=== PATIENT | female | born 1970 | race Caucasian/White ===

== ENCOUNTER 2016-09-10 16:51 | Inpatient (IN) | payer OTHER ==
--- NOTE | 2016-09-10 17:44 | CT ---
PROCEDURE: CT HEAD WITHOUT CONTRAST. HISTORY: Left sided weakness COMPARISON: None available. TECHNIQUE: Axial computed tomography images were obtained through the head/brain without intravenous contrast. Radiation dose: Total exam DLP = 815.82 mGy-cm. This CT exam was performed using one or more of the following dose reduction techniques: Automated exposure control, adjustment of the mA and/or kV according to patient size, and/or use of iterative reconstruction technique. FINDINGS: HEMORRHAGE: No intracranial hemorrhage. BRAIN: No mass effect or edema. No atrophy or chronic microvascular ischemic changes. VENTRICLES: Unremarkable. No hydrocephalus. CALVARIUM: Unremarkable. PARANASAL SINUSES: Unremarkable as visualized. No significant inflammatory changes. MASTOID AIR CELLS: Unremarkable as visualized. No inflammatory changes. OTHER FINDINGS: None. IMPRESSION: No acute intracranial abnormalities. No significant findings to account for the clinical presentation. Code stroke protocol: Study completed 17:39 Radiologist notified 17:39 Results conveyed verbally at 17:42 Interpretation finalized and available for review 17:45.
[2016-09-10 18:04] LABS: BASO # 0.1 K/uL (0.0-0.2); BASO % 1.1 % (0.0-2.0); EOS # 0.2 K/uL (0.0-0.7); EOS % 3.6 % (0.0-4.0); LYMPH # 1.9 K/uL (1.0-4.3); LYMPH % 30.1 % (20.0-40.0); MEAN CELL VOLUME 92.2 fL (81.0-99.0); MEAN CORPUSCULAR HEMOGLOBIN 30.3 pg (27.0-31.0); MEAN CORPUSCULAR HGB CONC 32.9 g/dL (33.0-37.0); MEAN PLATELET VOLUME 7.3 fL (7.2-11.7); MONO # 0.5 K/uL (0.0-0.8); MONO % 7.8 % (0.0-10.0); RED CELL DISTRIBUTION WIDTH 13.1 % (11.5-14.5); WHITE BLOOD COUNT 6.2 K/uL (4.8-10.8)
[2016-09-10 18:10] LABS: CHLORIDE 106 mmol/L (98-107); SODIUM 140 mmol/L (132-148)
[2016-09-10 18:11] LABS: POTASSIUM 3.7 mmol/L (3.6-5.2)
[2016-09-10 18:12] LABS: CHOLESTEROL 215 mg/dL (0-199); GFR AFRICAN-AMERICAN > 60
[2016-09-10 18:13] LABS: ALB/GLOB RATIO 1.4 (1.0-2.1); ALKALINE PHOSPHATASE 43 U/L (38-126); AST/SGOT 21 U/L (14-36); BILIRUBIN,TOTAL 0.5 mg/dL (0.2-1.3); BLOOD UREA NITROGEN 14 mg/dL (7-17); CARBON DIOXIDE 22 mmol/L (22-30); GLUCOSE,RANDOM 85 mg/dL (65-105)
[2016-09-10 18:14] LABS: ALT/SGPT 23 U/L (9-52); CALCIUM 8.8 mg/dl (8.6-10.4)
--- NOTE | 2016-09-10 18:27 | C.PDOC ---
History Of Present Illness Pt became emotionally upset this afternoon after she tried to call her daughter but she did not answer. Pt then develop left upper and lower extremity weakness. Time Seen by Provider: 09/10/16 17:09 Chief Complaint (Nursing): Weakness/Neurological Deficit History Per: Patient, EMS, Other (Friend) Onset/Duration Of Symptoms: Other (around 3:30 pm ) Current Symptoms Are (Timing): Still Present Fall Associated With With Symptoms: No Severity: Moderate Additional History Per: Prior Records - Symptoms Of CVA Associated Symptoms: denies: Impaired Speech, Seizure Activity, New Vision Deficit(Left), New Vision Deficit(Right), Decreased Ability To Walk, New Confusion Character Of Deficits: Left: Weakness, Sensory Loss, Arm: Weakness, Sensory Loss , Leg: Weakness, Sensory Loss Recent Head Trauma: No Past Medical History Reviewed: Historical Data, Nursing Documentation, Vital Signs Vital Signs: Last Vital Signs Temp 98.6 F 09/10/16 19:40 Pulse 85 09/10/16 19:40 Resp 13 09/10/16 19:40 BP 113/74 09/10/16 19:40 Pulse Ox 100 09/10/16 19:40 - Medical History PMH: No Chronic Diseases Surgical History: No Surg Hx Family History: States: Unknown Family Hx - Social History Hx Tobacco Use: No Hx Alcohol Use: No Hx Substance Use: No Review Of Systems Except As Marked, All Systems Reviewed And Found Negative. Constitutional: Negative for: Fever Cardiovascular: Negative for: Chest Pain Respiratory: Negative for: Shortness of Breath Gastrointestinal: Negative for: Vomiting, Abdominal Pain Musculoskeletal: Positive for: Shoulder Pain (left). Negative for: Neck Pain Skin: Negative for: Rash Neurological: Positive for: Weakness (left), Numbness (left). Negative for: Seizures, Headache Psych: Positive for: Anxiety Physical Exam - Physical Exam Appears: Non-toxic, No Acute Distress, Other (Pt is crying) Skin: Normal Color, Warm, Dry, No Rash Head: Atraumatic, Normacephalic Eye(s): bilateral: PERRL, EOMI Neck: Normal ROM, No Midline Cervical Tenderness, No Step Off Deformity, Supple Cardiovascular: Rhythm Regular Respiratory: Normal Breath Sounds, No Accessory Muscle Use Back: No CVA Tenderness, No Vertebral Tenderness Extremity: No Normal ROM, Tenderness (in the left upper shoulder area), No Deformity Extremity: Bilateral: Normal Color And Temperature Pulses: Left Radial: Normal, Right Radial: Normal Neurological/Psych: Oriented x3, Normal Motor, Normal Sensation ED Course And Treatment - Laboratory Results Result Diagrams: 09/10/16 17:56 09/10/16 17:56 Lab Interpretation: No Acute Changes ECG: Interpreted By Me, Viewed By Me ECG Rhythm: Sinus Rhythm, Nonspecific Changes Rate From EC O2 Sat by Pulse Oximetry: 99 Pulse Ox Interpretation: Normal - Radiology CXR: Interpreted by Me, Viewed By Me CXR Interpretation: Yes: No Acute Disease - CT Scan/US CT head Other Rad Studies (CT/US): Read By Radiologist, Radiology Report Reviewed CT/US Interpretation: IMPRESSION: No acute intracranial abnormalities. No significant findings to account for the clinical presentation. - Physician Consult Information Physician Contacted: Celso Hutchinson Outcome Of Conversation: He recommended giving pt TPA. He also recommended CT of head&neck after TPA. NIHSS Stroke Scale - Date/Time Evaluation Performed When Was NIHSS Performed: Baseline - How Severe is the Stoke Level of Consciousness: 0=Alert LOC to Questions: 0=Both comments correct LOC to commands: 0=Obeys both correctly Best Gaze: 0=Normal Visual: 0=No visual loss Facial: 0=Normal Motor Arm - Left: 3=No effort against gravity (falls immediately) Motor Arm - Right: 0=No drift Motor Leg - Left: 0=No drift Motor Leg - Right: 3=No effort against gravity (falls immediately) Limb Ataxia: 0=Absent Sensory: 1=Mild to moderate loss Best Language: 0=No aphasia Dysarthia: 0=Normal articulation Extinction & Inattention (Neglect): 0=Normal, no object Score: 7 Severity Of Stroke: 5-15= Moderate Stroke Progress - Interventions Interventions:: Observation - Data Reviewed Data Reviewed: Lab, Diagnostic imaging, EKG, Old records - Patient Status Patient status: Partially improved - Critical Care Citical Care: Excluding Proc Time Critical Care Time: 60 minutes - Continuity of Care Discussed patient case with:: Patient, ED Nurse, On-call PMD-pt unassigned Discussed pt. case with bridal stylist sales consultant/specialty: Neurology, Pulmonary/Crit. Care - Patient Plan Patient Plan: Admission, ICU rTPA Inclusion/Exclusion - Refusal of Treatment Patient Refused Treatment: No - Inclusion Criteria for Altepase Patient is 18 years or Older: Yes The Clinical Diagnosis of Ischemic Stroke That is Causing a Potentially Disabling Neurological Deficit: Yes Time of Onset is Well Established to be Less Than 270 Minute Before Treatment Would Begin: Yes Risk/Benefit Discussed With Patient/Family Member Present: Yes - Exclusion Criteria for Altepase Uncontrolled Hypertension at Time of Treatment (Systolic BP above 185 or Diastolic BP above 110 mmHg): No Active Internal Bleeding: No Known Bleeding Diathesis Including but Not Limited to: Platelets Below 100,000/ mm,PTT Above 40 sec After Heparin Use, Current Use of Oral Anitcoagulant With INR Greater Than 1.7 or PT Greater Than 15 secs: No Evidence of an Intracranial Hemorrhage: No Evidence of Major Acute Infarct With Signs Greater Than 1/3 MCA Territory: No Suspicion of Subarachnoid Hemorrhage on Pretreatment Evaluation Even if CT Head Negative For Hemorrhage: No - Warning to TPA With Conditions Following Conditions Weighed Against Anticipated Benefit: No Disposition Discussed With DrRandi: Eduard Torres Comment: He accepted pt on hospitalist service. Doctor Will See Patient In The: Hospital Counseled Patient/Family Regarding: Studies Performed, Diagnosis - Disposition Disposition: HOSPITALIZED Disposition Time: 19:57 Condition: FAIR - Clinical Impression Clinical Impression: Weakness of left side of body
[2016-09-10 18:53] LABS: INR 1.1
[2016-09-10] MEDS ORDERED: Iodixanol 320 MG/ML 100 ML BOTTLE IV ONE (20:13)
--- NOTE | 2016-09-10 20:31 | CP.PCM.HP ---
<Lionel Flores - Last Filed: 09/10/16 22:46> History of Present Illness - History of Present Illness History of Present Illness: CC: Weakness/Neurological Deficit since this morning. HPI: 45yo female with no significant PMHx - presents c/o Left sided weakness/ paralysis since this morning. 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 While in class, she made a phone- call to her daughter in [facility], could not reach her. While speaking with her teacher shortly after, she became emotional, fainted, and was unconscious for approximately 4 minutes (per teacher). She woke up with Left sided arm/leg weakness, vision changes (blurry), and tenderness to the occipital region. Denies incontinence of urine/feces at time of fainting. Denies f/c, headache, confusion, seizure, change in speech, chest pain, palpitations, SOB, abdominal pain, n/v, d/c, LE edema, or recent travel. This is the first time this constellation of symptoms has occurred, however patient reports a high level of stress for the last few weeks surround family issues. 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 Two friends at bedside, Be and Violet. In the ED, patient presented with inability to move her left arm/leg. CT head- Negative. ER physician discussed case with Neurologist and TPA was administered at 19:07. By 19:58 patient was able to minimally move L fingers/toes. By 20:14 patient was able to minimally move the L arm. During additional exam at 21:00, patient could minimally squeeze utilizing the L hand. PMHx: none, however patient very stressed for last 2-3 weeks. PSHx: denies Meds: none Allergies: NKDA FamHx: Father - of stroke at 60yo. Mother - DM. 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 PMD: none Present on Admission - Present on Admission Any Indicators Present on Admission: No Review of Systems - Review of Systems Review of Systems: - Constitutional Constitutional: absent: Anorexia, Chills, Fever, Weight Loss - EENT Eyes: +Blurred Vision absent: Loss of Peripheral Vision Ears: absent: Decreased Hearing, Ear Pain Nose/Mouth/Throat: absent: Epistaxis, Nasal Congestion, Bleeding Gums - Cardiovascular Cardiovascular: Irregular Heart Rhythm. absent: Chest Pain, Dyspnea, Edema - Respiratory Respiratory: absent: Cough, Dyspnea, Hemoptysis - Gastrointestinal Gastrointestinal: absent: Abdominal Pain, Coffee Ground Emesis, Hematochezia, Melena, Vomiting - Genitourinary Genitourinary: absent: Difficulty Urinating, Hematuria - Reproductive: Female Reproductive:Female: absent: Amenorrhea Additional comments: LMP 08/15/16 - Musculoskeletal Musculoskeletal: Muscle Weakness. absent: Back Pain, Neck Pain - Integumentary Integumentary: absent: Rash, Sores - Neurological Neurological: As Per HPI, Numbness, Syncope, Weakness. absent: Abnormal Speech , Dizziness, Headaches, Loss of Vision - Psychiatric Psychiatric: Anxiety, Depression - Endocrine Endocrine: absent: Excessive Sweating, Palpitations Past Patient History - Past Social History Smoking Status: Never Smoked - PSYCHIATRIC Hx Substance Use: No - SURGICAL HISTORY Hx Surgeries: No Meds Allergies/Adverse Reactions: Allergies Allergy/AdvReac Type Severity Reaction Status Date / Time No Known Allergies Allergy Unverified 09/10/16 16:59 Physical Exam - Extremities Exam Additional comments: Left: Weakness, Sensory Loss, Arm: Weakness, Sensory Loss, Leg: Weakness, Sensory Loss - Additional Findings Additional findings: - Constitutional Appears: No Acute Distress Additional comments: -Crying in ER, sad that she has not been able to contact daughter - Head Exam Head Exam: ATRAUMATIC, NORMAL INSPECTION, NORMOCEPHALIC - Eye Exam Eye Exam: EOMI, Normal appearance, PERRL. absent: Conjunctival injection, Periorbital swelling Pupil Exam: NORMAL ACCOMODATION - ENT Exam ENT Exam: Mucous Membranes Moist, Normal Exam - Neck Exam Neck exam: Positive for: Full Rom, Normal Inspection. Negative for: Lymphadenopathy - Respiratory Exam Respiratory Exam: Clear to Auscultation Bilateral, NORMAL BREATHING PATTERN. absent: Rhonchi, Wheezes - Cardiovascular Exam Cardiovascular Exam: REGULAR RHYTHM. absent: JVD - GI/Abdominal Exam GI & Abdominal Exam: Normal Bowel Sounds, Soft. absent: Organomegaly, Tenderness - Rectal Exam Rectal Exam: NORMAL INSPECTION. absent: Black Stool - Extremities Exam Extremities exam: Positive for: normal inspection. Negative for: calf tenderness, joint swelling, pedal edema - Back Exam Back exam: NORMAL INSPECTION - Neurological Exam Neurological exam: Alert, CN II-XII Intact, Oriented x3 Additional comments: -left upper and lower extremity weakness. Minimally squeezes with L hand. Minimally moves toes. NIHSS Stroke Scale - Date/Time Evaluation Performed When Was NIHSS Performed: Baseline - How Severe is the Stoke Level of Consciousness: 0=Alert LOC to Questions: 0=Both comments correct LOC to commands: 0=Obeys both correctly Best Gaze: 0=Normal Visual: 0=No visual loss Facial: 0=Normal Motor Arm - Left: 3=No effort against gravity (falls immediately) Motor Arm - Right: 0=No drift Motor Leg - Left: 0=No drift Motor Leg - Right: 3=No effort against gravity (falls immediately) Limb Ataxia: 0=Absent Sensory: 1=Mild to moderate loss Best Language: 0=No aphasia Dysarthia: 0=Normal articulation Extinction & Inattention (Neglect): 0=Normal, no object Score: 7 Severity Of Stroke: 5-15= Moderate Stroke - Psychiatric Exam Psychiatric exam: Anxious - Skin Skin Exam: Normal Color Results - Vital Signs Recent Vital Signs: Last Vital Signs Temp 98.3 F 09/10/16 20:15 Pulse 79 09/10/16 20:15 Resp 11 L 09/10/16 20:15 BP 115/79 09/10/16 20:15 Pulse Ox 100 09/10/16 20:15 - Labs Result Diagrams: 09/10/16 17:56 09/10/16 17:56 Labs: Laboratory Results - last 24 hr 09/10/16 09/10/16 09/10/16 17:56 17:56 17:56 WBC 6.2 RBC 4.55 Hgb 13.8 Hct 42.0 MCV 92.2 MCH 30.3 MCHC 32.9 L RDW 13.1 Plt Count 266 MPV 7.3 Neut % (Auto) 57.4 Lymph % (Auto) 30.1 [place] % (Auto) 7.8 Eos % (Auto) 3.6 Baso % (Auto) 1.1 Neut # 3.6 Lymph # 1.9 [place] # 0.5 Eos # 0.2 Baso # 0.1 PT 12.3 H INR 1.1 APTT 27 Sodium 140 Potassium 3.7 Chloride 106 Carbon Dioxide 22 Anion Gap 15 BUN 14 Creatinine 0.7 Est GFR ( Amer) > 60 Est GFR (Non-Af Amer) > 60 POC Glucose (mg/dL) Random Glucose 85 Hemoglobin A1c Calcium 8.8 Total Bilirubin 0.5 AST 21 ALT 23 Alkaline Phosphatase 43 Troponin I < 0.0120 Total Protein 7.0 Albumin 4.0 Globulin 3.0 Albumin/Globulin Ratio 1.4 Triglycerides 93 Cholesterol 215 H LDL Cholesterol Direct 130 H HDL Cholesterol 55 Blood Type Antibody Screen 09/10/16 09/10/16 09/10/16 17:56 17:56 17:59 WBC RBC Hgb Hct MCV MCH MCHC RDW Plt Count MPV Neut % (Auto) Lymph % (Auto) [place] % (Auto) Eos % (Auto) Baso % (Auto) Neut # Lymph # [place] # Eos # Baso # PT INR APTT Sodium Potassium Chloride Carbon Dioxide Anion Gap BUN Creatinine Est GFR ( Amer) Est GFR (Non-Af Amer) POC Glucose (mg/dL) 86 Random Glucose Hemoglobin A1c 5.4 Calcium Total Bilirubin AST ALT Alkaline Phosphatase Troponin I Total Protein Albumin Globulin Albumin/Globulin Ratio Triglycerides Cholesterol LDL Cholesterol Direct HDL Cholesterol Blood Type A NEGATIVE Antibody Screen Negative Assessment & Plan - Assessment and Plan (Free Text) Assessment: Cerebrovascular Accident (CVA) -Acute onset Left Upper and Lower Extremity weakness received tPA as recommended by Neurology -CT head w/contrast - Negative -f/u rpt CT head/neck with contrast. -CXR negative -EKG NSR -Consulted Neuro, Dr. Hutchinson, f/u recs -pt transferred to ICU -NIHSS Stroke Scale - 7/15 (moderate stroke) Anxiety -patient with a high level of stress for 2-3 weeks surrounding family issues ( 10yr old daughter in [facility]). 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 -When performing drop-arm test, patient avoided contact with face. Prophylaxis SCDs PT/OT eval/tx Swallow eval/tx Protonix 40mg PO qd - Date & Time Date: 09/10/16 Time: 20:30 <Eduard Torres - Last Filed: 09/11/16 06:35> Results - Vital Signs Recent Vital Signs: Last Vital Signs Temp 98.7 F 09/11/16 00:00 Pulse 18 L 09/11/16 05:00 Resp 70 H 09/11/16 05:00 BP 97/60 L 09/11/16 05:00 Pulse Ox 97 09/11/16 04:00 - Labs Result Diagrams: 09/10/16 17:56 09/10/16 17:56 Labs: Laboratory Results - last 24 hr 09/10/16 09/10/16 09/10/16 20:29 20:29 23:57 POC Glucose (mg/dL) 88 Urine Color Yellow Urine Clarity Hazy Urine pH 5.0 Ur Specific [place] 1.014 Urine Protein Negative Urine Glucose (UA) Normal Urine Ketones Trace Urine Blood 2+ H Urine Nitrate Negative Urine Bilirubin Negative Urine Urobilinogen Normal Ur Leukocyte Esterase 2+ H Urine WBC (Auto) 21 H Urine RBC (Auto) 7 H Ur Squamous Epith Cells 8 H Ur Transition Epith Cell < 1 Urine Bacteria Occ H Urine HCG, Qual Negative Stool Occult Blood Negative Assessment & Plan - Date & Time Date: 09/11/16 (I have seen and examined the patient. I agree with the findings and plan of care as documented by Dr. Flores except for portion regarding Conversion/Somatoform disorder - not diagnosed, will speak to patient' s family regarding any psych related issues. Patient with CVA. tPA given in ED. Neuro consulted. F/U repeat CT of head and neck with contrast. PT/OT. 2D Echo. Fall precautions. Also with history of of anxiety. Ativan. Admit to ICU. Monitor for acute changes.) Time: 06:32 Attending/Attestation - Attestation I have personally seen and examined this patient.: Yes I have fully participated in the care of the patient.: Yes I have reviewed all pertinent clinical information: Yes
--- NOTE | 2016-09-10 20:47 | CP.PCM.CON ---
History of Present Illness - History of Present Illness History of Present Illness: 45 y/o female with no significant PMH,not on medications brought to Er with left sided weakness after fainting.Patient became emotionally upset this afternoon after she tried to call her 10 y/o daughter in [facility] but she did not answer. Patient was at an Amharic class talking to her teacher when she "fainted" for unknown duration of time. When she woke up she could not move the left side of her body.No incontinence of urine or feces at time of fainting. 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 absent: Chest Pain, Dyspnea, Edema - Respiratory Respiratory: Cough, Dyspnea, Hemoptysis - Gastrointestinal Gastrointestinal: absent: Abdominal Pain, Coffee Ground Emesis, Hematochezia, Melena, Vomiting - Genitourinary Genitourinary: absent: Difficulty Urinating, Hematuria - Reproductive: Female Reproductive:Female: absent: Amenorrhea Additional comments: LMP 08/15/16 - Musculoskeletal Musculoskeletal: Muscle Weakness. absent: Back Pain, Neck Pain - Integumentary Integumentary: absent: Rash, Sores - Neurological Neurological: As Per HPI, Numbness, Syncope, Weakness. absent: Abnormal Speech , Dizziness, Headaches, Loss of Vision - Psychiatric Psychiatric: Anxiety, Depression - Endocrine Endocrine: absent: Excessive Sweating, Palpitations Past Patient History - Past Medical History & Family History Past Medical History?: No - Past Social History Smoking Status: Never Smoked Alcohol: None Drugs: Denies - PSYCHIATRIC Hx Substance Use: No - SURGICAL HISTORY Hx Surgeries: No Meds Allergies/Adverse Reactions: Allergies Allergy/AdvReac Type Severity Reaction Status Date / Time No Known Allergies Allergy Unverified 09/10/16 16:59 Physical Exam - Constitutional Appears: No Acute Distress Additional comments: Crying in ER,sad that she has not been able to contact daughter - Head Exam Head Exam: ATRAUMATIC, NORMAL INSPECTION, NORMOCEPHALIC - Eye Exam Eye Exam: EOMI, Normal appearance, PERRL. absent: Conjunctival injection, Periorbital swelling Pupil Exam: NORMAL ACCOMODATION - ENT Exam ENT Exam: Mucous Membranes Moist, Normal Exam - Neck Exam Neck exam: Positive for: Full Rom, Normal Inspection. Negative for: Lymphadenopathy - Respiratory Exam Respiratory Exam: Clear to Auscultation Bilateral, NORMAL BREATHING PATTERN. absent: Rhonchi, Wheezes - Cardiovascular Exam Cardiovascular Exam: REGULAR RHYTHM. absent: JVD - GI/Abdominal Exam GI & Abdominal Exam: Normal Bowel Sounds, Soft. absent: Organomegaly, Tenderness - Rectal Exam Rectal Exam: NORMAL INSPECTION. absent: Black Stool - Extremities Exam Extremities exam: Positive for: normal inspection. Negative for: calf tenderness, joint swelling, pedal edema - Back Exam Back exam: NORMAL INSPECTION - Neurological Exam Neurological exam: Alert, CN II-XII Intact, Oriented x3 Additional comments: left upper and lower extremity weakness .moves hand and toes minimally - Psychiatric Exam Psychiatric exam: Anxious - Skin Skin Exam: Normal Color Results - Vital Signs Recent Vital Signs: Last Vital Signs Temp 98.5 F 09/10/16 20:35 Pulse 82 09/10/16 20:35 Resp 19 09/10/16 20:35 BP 119/64 09/10/16 20:35 Pulse Ox 100 09/10/16 20:35 - Labs Result Diagrams: 09/10/16 17:56 09/10/16 17:56 - EKG Data EKG Interpreted by: Myself - Imaging and Cardiology CT scan - head Status: Image reviewed by me, Report reviewed by me Chest x-ray Status: Image reviewed by me (no infiltrates) Assessment & Plan - Assessment and Plan (Free Text) Assessment: 1.CVA-Acute onset Left Upper and Lower Extremity weakness received tPA as recommended by Neurology f/u with rpt CT scan 2.Anxiety
[2016-09-10 21:05] LABS: RBC URINE 7 /hpf (0-3); TRANSITIONAL EPITHIAL < 1 /hpf (0-3); URINE BACTERIA OCC (<OCC); URINE BILIRUBIN NEGATIVE (NEGATIVE); URINE BLOOD 2+ (NEGATIVE); URINE COLOR Yellow (YELLOW); URINE GLUCOSE (UA) NORMAL (Normal); URINE KETONE TRACE mg/dL (NEGATIVE); URINE LEUKOCYTE ESTERASE 2+ Leu/uL (Negative); URINE PROTEIN NEGATIVE (NEGATIVE); URINE UROBILINOGEN NORMAL mg/dL (0.2-1.0); WBC URINE 21 /hpf (0-5)
[2016-09-11] MEDS ORDERED: Dextrose 5%/0.45% NS 1,000 ML IV SCH (01:15)
[2016-09-11] MEDS ORDERED: (Novolin R) Insulin Human Regular 100 units/ml vial SC SCH (06:45)
[2016-09-11 06:46] LABS: BASO # 0.1 K/uL (0.0-0.2); BASO % 0.9 % (0.0-2.0); EOS # 0.3 K/uL (0.0-0.7); EOS % 4.9 % (0.0-4.0); HEMATOCRIT 41.7 % (34.0-47.0); LYMPH # 2.5 K/uL (1.0-4.3); LYMPH % 43.9 % (20.0-40.0); MEAN CELL VOLUME 92.8 fL (81.0-99.0); MEAN CORPUSCULAR HEMOGLOBIN 30.9 pg (27.0-31.0); MEAN CORPUSCULAR HGB CONC 33.3 g/dL (33.0-37.0); MEAN PLATELET VOLUME 7.4 fL (7.2-11.7); MONO # 0.5 K/uL (0.0-0.8); MONO % 8.7 % (0.0-10.0); RED CELL DISTRIBUTION WIDTH 12.9 % (11.5-14.5); WHITE BLOOD COUNT 5.7 K/uL (4.8-10.8)
[2016-09-11 07:05] LABS: CHLORIDE 107 mmol/L (98-107)
[2016-09-11 07:06] LABS: POTASSIUM 3.5 mmol/L (3.6-5.2); SODIUM 140 mmol/L (132-148)
[2016-09-11 07:08] LABS: ALB/GLOB RATIO 1.3 (1.0-2.1); ALKALINE PHOSPHATASE 38 U/L (38-126); AST/SGOT 24 U/L (14-36); BILIRUBIN,TOTAL 0.8 mg/dL (0.2-1.3); BLOOD UREA NITROGEN 10 mg/dL (7-17); CARBON DIOXIDE 19 mmol/L (22-30); GFR AFRICAN-AMERICAN > 60; GLUCOSE,RANDOM 85 mg/dL (65-105); TOTAL PROTEIN 6.4 g/dL (6.3-8.3)
[2016-09-11 07:09] LABS: ALT/SGPT 13 U/L (9-52); CALCIUM 8.6 mg/dl (8.6-10.4); MAGNESIUM 2.1 mg/dL (1.6-2.3); PHOSPHOROUS 3.8 mg/dL (2.5-4.5)
--- NOTE | 2016-09-11 07:48 | CP.CCUPN ---
<Amy Dunne - Last Filed: 09/11/16 10:43> CCU Subjective - Physician Review Subjective (Free Text): 45F with no PMHx presents to the ED with left sided weakness. Patient reports she is under a lot of stress, anxiety and depression due to her only daughter being in other country with family. She is in the process of getting a green card for her but it has been taking longer than anticipated. She has not been able to get in contact with the family for the past 2 days and this has brought her a lot of concern and worry. Yesterday she was in her ESL class when she tried to call her daughter but was unable to get in contact with her for a 2nd day. Then she started to feel lightheaded and fainted. She lost sensation and motor function throughout the left side of her body. After receiving TPA she started to have sensation back. Today she states she has full sensation but she cannot move her left extremities. Patient was seen and examined at bedside. Patient reports she feels pain all over. She can wiggle left fingers, hand, and left toes. She cannot raise her left arm. Patient is laying down flat and when passively moving the left arm in front of her face, the arm falls with gravity but avoids her face. Initial Head CT was negative, second Head CT was also negative. Pending follow up of Head CTA and Brain MRI. Psych consulted for possible conversion disorder. CCU Objective - Vital Signs / Intake & Output Vital Signs (Last 4 hours): Vital Signs Pulse Resp BP Pulse Ox 09/11/16 06:00 68 18 110/56 L 97 09/11/16 05:00 18 L 70 H 97/60 L 09/11/16 04:00 74 16 87/57 L 97 Intake and Output (Last 8hrs): Intake & Output 09/10/16 09/11/16 09/11/16 22:59 06:59 14:59 Intake Total 300 Output Total 700 Balance -400 Intake: Intake, IV Amount 300 Right Forearm 300 Output: Urine 700 Urine, Voided 700 - Physical Exam Head: Positive for: Atraumatic, Normocephalic Pupils: Positive for: PERRL Extroacular Muscles: Positive for: EOMI Conjunctiva: Positive for: Normal Mouth: Positive for: Moist Mucous Membranes Respiratory/Chest: Positive for: Clear to Auscultation. Negative for: Respiratory Distress, Accessory Muscle Use Cardiovascular: Positive for: Regular Rate and Rhythm Abdomen: Positive for: Normal Bowel Sounds. Negative for: Tenderness, Distention Upper Extremity: Positive for: Normal Inspection, NORMAL PULSES, Other (Left arm strength +2/5 ) Lower Extremity: Positive for: Normal Inspection, NORMAL PULSES, Other (Left leg strength +2/5 ). Negative for: CALF TENDERNESS Neurological: Positive for: GCS=15, CN II-XII Intact, Other Skin: Positive for: Warm, Dry, Normal Color Psychiatric: Positive for: Alert, Oriented x 3 - Medications Active Medications: Active Medications Generic Name Dose Route Start Last Admin Trade Name Freq PRN Reason Stop Dose Admin Dextrose/Sodium Chloride 1,000 mls @ 60 mls/hr 09/11/16 01:15 Dextrose 5%/0.45% Ns 1000 Ml IV .[id number] [facility] Insulin Human Regular 0 unit 09/11/16 06:45 Novolin R SC Q6H [facility] Protocol Pantoprazole Sodium 40 mg 09/11/16 10:00 Protonix Ec Tab PO DAILY [facility] Potassium Chloride 40 meq 09/11/16 09:00 K-Dur 20 Meq Er Tab PO 09/11/16 09:01 ONCE ONE - Patient Studies Lab Studies: Lab Studies 09/11/16 09/11/16 09/10/16 Range/Units 06:44 06:44 23:57 WBC 5.7 (4.8-10.8) K/uL RBC 4.49 (3.80-5.20) Mil/uL Hgb 13.9 (11.0-16.0) g/dL Hct 41.7 (34.0-47.0) % MCV 92.8 (81.0-99.0) fL MCH 30.9 (27.0-31.0) pg MCHC 33.3 (33.0-37.0) g/dL RDW 12.9 (11.5-14.5) % Plt Count 249 (130-400) K/uL MPV 7.4 (7.2-11.7) fL Neut % (Auto) 41.6 L (50.0-75.0) % Lymph % (Auto) 43.9 H (20.0-40.0) % Cochran % (Auto) 8.7 (0.0-10.0) % Eos % (Auto) 4.9 H (0.0-4.0) % Baso % (Auto) 0.9 (0.0-2.0) % Neut # 2.4 (1.8-7.0) K/uL Lymph # 2.5 (1.0-4.3) K/uL Cochran # 0.5 (0.0-0.8) K/uL Eos # 0.3 (0.0-0.7) K/uL Baso # 0.1 (0.0-0.2) K/uL Sodium 140 (132-148) mmol/L Potassium 3.5 L (3.6-5.2) mmol/L Chloride 107 (98-107) mmol/L Carbon Dioxide 19 L (22-30) mmol/L Anion Gap 18 (10-20) BUN 10 (7-17) mg/dL Creatinine 0.5 L (0.7-1.2) MG/DL Est GFR ( Amer) > 60 Est GFR (Non-Af Amer) > 60 POC Glucose (mg/dL) 88 (65-110) mg/dL Random Glucose 85 (65-105) mg/dL Calcium 8.6 (8.6-10.4) mg/dl Phosphorus 3.8 (2.5-4.5) mg/dL Magnesium 2.1 (1.6-2.3) mg/dL Total Bilirubin 0.8 (0.2-1.3) mg/dL AST 24 (14-36) U/L ALT 13 (9-52) U/L Alkaline Phosphatase 38 (38-126) U/L Total Protein 6.4 (6.3-8.3) g/dL Albumin 3.5 (3.5-5.0) g/dL Globulin 2.8 (2.2-3.9) gm/dL Albumin/Globulin Ratio 1.3 (1.0-2.1) Urine Color (YELLOW) Urine Clarity (Clear) Urine pH (5.0-8.0) Ur Specific [place] (1.003-1.030) Urine Protein (NEGATIVE) mg/dL Urine Glucose (UA) (Normal) mg/dL Urine Ketones (NEGATIVE) mg/dL Urine Blood (NEGATIVE) Urine Nitrate (NEGATIVE) Urine Bilirubin (NEGATIVE) Urine Urobilinogen (0.2-1.0) mg/dL Ur Leukocyte Esterase (Negative) Rebecca/uL Urine WBC (Auto) (0-5) /hpf Urine RBC (Auto) (0-3) /hpf Ur Squamous Epith Cells (0-5) /hpf Ur Transition Epith Cell (0-3) /hpf Urine Bacteria (<OCC) Urine HCG, Qual (NEGATIVE) Stool Occult Blood (NEGATIVE) 09/10/16 09/10/16 Range/Units 20:29 20:29 WBC (4.8-10.8) K/uL RBC (3.80-5.20) Mil/uL Hgb (11.0-16.0) g/dL Hct (34.0-47.0) % MCV (81.0-99.0) fL MCH (27.0-31.0) pg MCHC (33.0-37.0) g/dL RDW (11.5-14.5) % Plt Count (130-400) K/uL MPV (7.2-11.7) fL Neut % (Auto) (50.0-75.0) % Lymph % (Auto) (20.0-40.0) % Cochran % (Auto) (0.0-10.0) % Eos % (Auto) (0.0-4.0) % Baso % (Auto) (0.0-2.0) % Neut # (1.8-7.0) K/uL Lymph # (1.0-4.3) K/uL Cochran # (0.0-0.8) K/uL Eos # (0.0-0.7) K/uL Baso # (0.0-0.2) K/uL Sodium (132-148) mmol/L Potassium (3.6-5.2) mmol/L Chloride (98-107) mmol/L Carbon Dioxide (22-30) mmol/L Anion Gap (10-20) BUN (7-17) mg/dL Creatinine (0.7-1.2) MG/DL Est GFR ( Amer) Est GFR (Non-Af Amer) POC Glucose (mg/dL) (65-110) mg/dL Random Glucose (65-105) mg/dL Calcium (8.6-10.4) mg/dl Phosphorus (2.5-4.5) mg/dL Magnesium (1.6-2.3) mg/dL Total Bilirubin (0.2-1.3) mg/dL AST (14-36) U/L ALT (9-52) U/L Alkaline Phosphatase (38-126) U/L Total Protein (6.3-8.3) g/dL Albumin (3.5-5.0) g/dL Globulin (2.2-3.9) gm/dL Albumin/Globulin Ratio (1.0-2.1) Urine Color Yellow (YELLOW) Urine Clarity Hazy (Clear) Urine pH 5.0 (5.0-8.0) Ur Specific [place] 1.014 (1.003-1.030) Urine Protein Negative (NEGATIVE) mg/dL Urine Glucose (UA) Normal (Normal) mg/dL Urine Ketones Trace (NEGATIVE) mg/dL Urine Blood 2+ H (NEGATIVE) Urine Nitrate Negative (NEGATIVE) Urine Bilirubin Negative (NEGATIVE) Urine Urobilinogen Normal (0.2-1.0) mg/dL Ur Leukocyte Esterase 2+ H (Negative) Rebecca/uL Urine WBC (Auto) 21 H (0-5) /hpf Urine RBC (Auto) 7 H (0-3) /hpf Ur Squamous Epith Cells 8 H (0-5) /hpf Ur Transition Epith Cell < 1 (0-3) /hpf Urine Bacteria Occ H (<OCC) Urine HCG, Qual Negative (NEGATIVE) Stool Occult Blood Negative (NEGATIVE) Laboratory Results - last 24 hr 09/10/16 09/10/16 09/10/16 20:29 20:29 23:57 WBC RBC Hgb Hct MCV MCH MCHC RDW Plt Count MPV Neut % (Auto) Lymph % (Auto) Cochran % (Auto) Eos % (Auto) Baso % (Auto) Neut # Lymph # Cochran # Eos # Baso # Sodium Potassium Chloride Carbon Dioxide Anion Gap BUN Creatinine Est GFR ( Amer) Est GFR (Non-Af Amer) POC Glucose (mg/dL) 88 Random Glucose Calcium Phosphorus Magnesium Total Bilirubin AST ALT Alkaline Phosphatase Total Protein Albumin Globulin Albumin/Globulin Ratio Urine Color Yellow Urine Clarity Hazy Urine pH 5.0 Ur Specific [place] 1.014 Urine Protein Negative Urine Glucose (UA) Normal Urine Ketones Trace Urine Blood 2+ H Urine Nitrate Negative Urine Bilirubin Negative Urine Urobilinogen Normal Ur Leukocyte Esterase 2+ H Urine WBC (Auto) 21 H Urine RBC (Auto) 7 H Ur Squamous Epith Cells 8 H Ur Transition Epith Cell < 1 Urine Bacteria Occ H Urine HCG, Qual Negative Stool Occult Blood Negative 09/11/16 09/11/16 06:44 06:44 WBC 5.7 RBC 4.49 Hgb 13.9 Hct 41.7 MCV 92.8 MCH 30.9 MCHC 33.3 RDW 12.9 Plt Count 249 MPV 7.4 Neut % (Auto) 41.6 L Lymph % (Auto) 43.9 H Cochran % (Auto) 8.7 Eos % (Auto) 4.9 H Baso % (Auto) 0.9 Neut # 2.4 Lymph # 2.5 Cochran # 0.5 Eos # 0.3 Baso # 0.1 Sodium 140 Potassium 3.5 L Chloride 107 Carbon Dioxide 19 L Anion Gap 18 BUN 10 Creatinine 0.5 L Est GFR ( Amer) > 60 Est GFR (Non-Af Amer) > 60 POC Glucose (mg/dL) Random Glucose 85 Calcium 8.6 Phosphorus 3.8 Magnesium 2.1 Total Bilirubin 0.8 AST 24 ALT 13 Alkaline Phosphatase 38 Total Protein 6.4 Albumin 3.5 Globulin 2.8 Albumin/Globulin Ratio 1.3 Urine Color Urine Clarity Urine pH Ur Specific [place] Urine Protein Urine Glucose (UA) Urine Ketones Urine Blood Urine Nitrate Urine Bilirubin Urine Urobilinogen Ur Leukocyte Esterase Urine WBC (Auto) Urine RBC (Auto) Ur Squamous Epith Cells Ur Transition Epith Cell Urine Bacteria Urine HCG, Qual Stool Occult Blood Fingerstick Blood Sugar Results: 88 Critical Care Progress Note - Nutrition Nutrition: Nutrition Category Date Time Status NPO Diet [DIET] Diets 09/11/16 Breakfast Active Assessment/Plan - Assessment and Plan (Free Text) Assessment: 45F with no PMHx presents with acute onset left sided weakness. Head CT neg x2. TPA was administered. Plan: CVA * Acute onset Left upper and lower extremity weakness * NIHSS Stroke Scale - 7/15 (moderate stroke) * Received tPA as recommended by Neurology * Initial CT head w/contrast - Negative, repeat head CT negative * Consulted Neuro, Dr. Hutchinson- patient was given TPA in the ED, Head CTA ordered , Brain MRI order- pending readings Possible Conversion/ Somatoform Disorder * Patient is laying down flat and when passively moving the left arm infront of her face, the arm falls with gravity but avoids her face. * Patient reports a significant amount of stress over the past few weeks. Patient's 10 year old daughter resides in a different country. * Psych Consulted- Dr. Hinton- help appreciated Hypokalemia * KCL repleted UTI * Initial UA - + LE, follow up repeat UA * Denied any urinary symptoms * Follow up urine drug screen Prophylactic Measures * GI PPX: Protonix 40mg PO daily * DVT PPX: SCDs * Regular Diet * PT/ OT DW Vibha Martinez DO, PGY-1 <Eboni Umanzor - Last Filed: 09/11/16 13:58> CCU Objective - Vital Signs / Intake & Output Vital Signs (Last 4 hours): Vital Signs Pulse Resp BP Pulse Ox 09/11/16 12:25 84 16 97/61 L 100 09/11/16 11:00 87 18 99/58 L 98 09/11/16 10:00 84 16 107/66 99 Intake and Output (Last 8hrs): Intake & Output 09/10/16 09/11/16 09/11/16 22:59 06:59 14:59 Intake Total 300 600 Output Total 700 400 Balance -400 200 Intake: Intake, IV Amount 300 400 Right Forearm 300 400 Oral 200 Output: Urine 700 400 Urine, Voided 700 400 - Medications Active Medications: Active Medications Generic Name Dose Route Start Last Admin Trade Name Freq PRN Reason Stop Dose Admin Pantoprazole Sodium 40 mg 09/11/16 10:00 09/11/16 09:55 Protonix Ec Tab PO 40 mg DAILY [facility] Administration Sertraline HCl 50 mg 09/11/16 13:00 Zoloft PO DAILY [facility] Trazodone HCl 50 mg 09/11/16 22:00 Desyrel PO HS FESTUS - Patient Studies Lab Studies: Lab Studies 09/11/16 09/11/16 09/10/16 Range/Units 06:44 06:44 23:57 WBC 5.7 (4.8-10.8) K/uL RBC 4.49 (3.80-5.20) Mil/uL Hgb 13.9 (11.0-16.0) g/dL Hct 41.7 (34.0-47.0) % MCV 92.8 (81.0-99.0) fL MCH 30.9 (27.0-31.0) pg MCHC 33.3 (33.0-37.0) g/dL RDW 12.9 (11.5-14.5) % Plt Count 249 (130-400) K/uL MPV 7.4 (7.2-11.7) fL Neut % (Auto) 41.6 L (50.0-75.0) % Lymph % (Auto) 43.9 H (20.0-40.0) % Cochran % (Auto) 8.7 (0.0-10.0) % Eos % (Auto) 4.9 H (0.0-4.0) % Baso % (Auto) 0.9 (0.0-2.0) % Neut # 2.4 (1.8-7.0) K/uL Lymph # 2.5 (1.0-4.3) K/uL Cochran # 0.5 (0.0-0.8) K/uL Eos # 0.3 (0.0-0.7) K/uL Baso # 0.1 (0.0-0.2) K/uL Sodium 140 (132-148) mmol/L Potassium 3.5 L (3.6-5.2) mmol/L Chloride 107 (98-107) mmol/L Carbon Dioxide 19 L (22-30) mmol/L Anion Gap 18 (10-20) BUN 10 (7-17) mg/dL Creatinine 0.5 L (0.7-1.2) MG/DL Est GFR ( Amer) > 60 Est GFR (Non-Af Amer) > 60 POC Glucose (mg/dL) 88 (65-110) mg/dL Random Glucose 85 (65-105) mg/dL Calcium 8.6 (8.6-10.4) mg/dl Phosphorus 3.8 (2.5-4.5) mg/dL Magnesium 2.1 (1.6-2.3) mg/dL Total Bilirubin 0.8 (0.2-1.3) mg/dL AST 24 (14-36) U/L ALT 13 (9-52) U/L Alkaline Phosphatase 38 (38-126) U/L Total Protein 6.4 (6.3-8.3) g/dL Albumin 3.5 (3.5-5.0) g/dL Globulin 2.8 (2.2-3.9) gm/dL Albumin/Globulin Ratio 1.3 (1.0-2.1) Urine Color (YELLOW) Urine Clarity (Clear) Urine pH (5.0-8.0) Ur Specific [place] (1.003-1.030) Urine Protein (NEGATIVE) mg/dL Urine Glucose (UA) (Normal) mg/dL Urine Ketones (NEGATIVE) mg/dL Urine Blood (NEGATIVE) Urine Nitrate (NEGATIVE) Urine Bilirubin (NEGATIVE) Urine Urobilinogen (0.2-1.0) mg/dL Ur Leukocyte Esterase (Negative) Rebecca/uL Urine WBC (Auto) (0-5) /hpf Urine RBC (Auto) (0-3) /hpf Ur Squamous Epith Cells (0-5) /hpf Ur Transition Epith Cell (0-3) /hpf Urine Bacteria (<OCC) Urine HCG, Qual (NEGATIVE) Stool Occult Blood (NEGATIVE) 09/10/16 09/10/16 Range/Units 20:29 20:29 WBC (4.8-10.8) K/uL RBC (3.80-5.20) Mil/uL Hgb (11.0-16.0) g/dL Hct (34.0-47.0) % MCV (81.0-99.0) fL MCH (27.0-31.0) pg MCHC (33.0-37.0) g/dL RDW (11.5-14.5) % Plt Count (130-400) K/uL MPV (7.2-11.7) fL Neut % (Auto) (50.0-75.0) % Lymph % (Auto) (20.0-40.0) % Cochran % (Auto) (0.0-10.0) % Eos % (Auto) (0.0-4.0) % Baso % (Auto) (0.0-2.0) % Neut # (1.8-7.0) K/uL Lymph # (1.0-4.3) K/uL [place]ran # (0.0-0.8) K/uL Eos # (0.0-0.7) K/uL Baso # (0.0-0.2) K/uL Sodium (132-148) mmol/L Potassium (3.6-5.2) mmol/L Chloride (98-107) mmol/L Carbon Dioxide (22-30) mmol/L Anion Gap (10-20) BUN (7-17) mg/dL Creatinine (0.7-1.2) MG/DL Est GFR ( Amer) Est GFR (Non-Af Amer) POC Glucose (mg/dL) (65-110) mg/dL Random Glucose (65-105) mg/dL Calcium (8.6-10.4) mg/dl Phosphorus (2.5-4.5) mg/dL Magnesium (1.6-2.3) mg/dL Total Bilirubin (0.2-1.3) mg/dL AST (14-36) U/L ALT (9-52) U/L Alkaline Phosphatase (38-126) U/L Total Protein (6.3-8.3) g/dL Albumin (3.5-5.0) g/dL Globulin (2.2-3.9) gm/dL Albumin/Globulin Ratio (1.0-2.1) Urine Color Yellow (YELLOW) Urine Clarity Hazy (Clear) Urine pH 5.0 (5.0-8.0) Ur Specific [place] 1.014 (1.003-1.030) Urine Protein Negative (NEGATIVE) mg/dL Urine Glucose (UA) Normal (Normal) mg/dL Urine Ketones Trace (NEGATIVE) mg/dL Urine Blood 2+ H (NEGATIVE) Urine Nitrate Negative (NEGATIVE) Urine Bilirubin Negative (NEGATIVE) Urine Urobilinogen Normal (0.2-1.0) mg/dL Ur Leukocyte Esterase 2+ H (Negative) Rebecca/uL Urine WBC (Auto) 21 H (0-5) /hpf Urine RBC (Auto) 7 H (0-3) /hpf Ur Squamous Epith Cells 8 H (0-5) /hpf Ur Transition Epith Cell < 1 (0-3) /hpf Urine Bacteria Occ H (<OCC) Urine HCG, Qual Negative (NEGATIVE) Stool Occult Blood Negative (NEGATIVE) Laboratory Results - last 24 hr 09/10/16 09/10/16 09/10/16 20:29 20:29 23:57 WBC RBC Hgb Hct MCV MCH MCHC RDW Plt Count MPV Neut % (Auto) Lymph % (Auto) [place] % (Auto) Eos % (Auto) Baso % (Auto) Neut # Lymph # [place]ran # Eos # Baso # Sodium Potassium Chloride Carbon Dioxide Anion Gap BUN Creatinine Est GFR ( Amer) Est GFR (Non-Af Amer) POC Glucose (mg/dL) 88 Random Glucose Calcium Phosphorus Magnesium Total Bilirubin AST ALT Alkaline Phosphatase Total Protein Albumin Globulin Albumin/Globulin Ratio Urine Color Yellow Urine Clarity Hazy Urine pH 5.0 Ur Specific [place] 1.014 Urine Protein Negative Urine Glucose (UA) Normal Urine Ketones Trace Urine Blood 2+ H Urine Nitrate Negative Urine Bilirubin Negative Urine Urobilinogen Normal Ur Leukocyte Esterase 2+ H Urine WBC (Auto) 21 H Urine RBC (Auto) 7 H Ur Squamous Epith Cells 8 H Ur Transition Epith Cell < 1 Urine Bacteria Occ H Urine HCG, Qual Negative Stool Occult Blood Negative 09/11/16 09/11/16 06:44 06:44 WBC 5.7 RBC 4.49 Hgb 13.9 Hct 41.7 MCV 92.8 MCH 30.9 MCHC 33.3 RDW 12.9 Plt Count 249 MPV 7.4 Neut % (Auto) 41.6 L Lymph % (Auto) 43.9 H [place] % (Auto) 8.7 Eos % (Auto) 4.9 H Baso % (Auto) 0.9 Neut # 2.4 Lymph # 2.5 Cochran # 0.5 Eos # 0.3 Baso # 0.1 Sodium 140 Potassium 3.5 L Chloride 107 Carbon Dioxide 19 L Anion Gap 18 BUN 10 Creatinine 0.5 L Est GFR ( Amer) > 60 Est GFR (Non-Af Amer) > 60 POC Glucose (mg/dL) Random Glucose 85 Calcium 8.6 Phosphorus 3.8 Magnesium 2.1 Total Bilirubin 0.8 AST 24 ALT 13 Alkaline Phosphatase 38 Total Protein 6.4 Albumin 3.5 Globulin 2.8 Albumin/Globulin Ratio 1.3 Urine Color Urine Clarity Urine pH Ur Specific [place] Urine Protein Urine Glucose (UA) Urine Ketones Urine Blood Urine Nitrate Urine Bilirubin Urine Urobilinogen Ur Leukocyte Esterase Urine WBC (Auto) Urine RBC (Auto) Ur Squamous Epith Cells Ur Transition Epith Cell Urine Bacteria Urine HCG, Qual Stool Occult Blood Critical Care Progress Note - Nutrition Nutrition: Nutrition Category Date Time Status Regular Diet [DIET] Diets 09/11/16 Breakfast Active Attending/Attestation - Attestation I have personally seen and examined this patient.: Yes I have fully participated in the care of the patient.: Yes I have reviewed all pertinent clinical information: Yes Notes (Text): 09/11/16 13:55 Patient doing well, able to move left side of the body, but strength 3/5, diffuse pain in extremities when moving them. When her hand is let go over her face she manages to move her arm not to hit her face. Brain imaging no acute stroke. Most likely conversion disorder. Will benefit from PT. Seen by psychiatry, major depression disorder, started on antidepressants. Transfer to the floor.
--- NOTE | 2016-09-11 08:18 | CT ---
PROCEDURE: CT HEAD WITHOUT CONTRAST. HISTORY: post tpa headache COMPARISON: 09/10/2016 TECHNIQUE: Axial computed tomography images were obtained through the head/brain without intravenous contrast. Radiation dose: Total exam DLP = 988.89 mGy-cm. This CT exam was performed using one or more of the following dose reduction techniques: Automated exposure control, adjustment of the mA and/or kV according to patient size, and/or use of iterative reconstruction technique. FINDINGS: HEMORRHAGE: No intracranial hemorrhage. BRAIN: No mass effect or edema. No atrophy or chronic microvascular ischemic changes. VENTRICLES: Unremarkable. No hydrocephalus. CALVARIUM: Unremarkable. PARANASAL SINUSES: Unremarkable as visualized. No significant inflammatory changes. MASTOID AIR CELLS: Unremarkable as visualized. No inflammatory changes. OTHER FINDINGS: None. IMPRESSION: No intracranial hemorrhage. No interval change. Unremarkable CT examination of the head.
--- NOTE | 2016-09-11 08:37 | RAD ---
HISTORY: Left sided weakness, left shoulder area pain COMPARISON: No prior. FINDINGS: LUNGS: No active pulmonary disease. PLEURA: No significant pleural effusion identified, no pneumothorax apparent. CARDIOVASCULAR: Normal. OSSEOUS STRUCTURES: No significant abnormalities. VISUALIZED UPPER ABDOMEN: Normal. OTHER FINDINGS: None. IMPRESSION: No active disease.
[2016-09-11] MEDS ORDERED: Potassium Chloride 20 mEq ER Tab PO ONE (09:00)
[2016-09-11] MEDS: Pantoprazole 40 mg EC Tab PO SCH (09:55)
--- NOTE | 2016-09-11 10:37 | PCM.PSYCH ---
Initial Psychiatric Evaluation - Initial Psychiatric Evaluation Type of Admission: Voluntary Legal Status: Capacity Chief Complaint (in patient's own words): i am feeling depressed. History of Present Illness and Precipitating Events: 45 y/o female, who lives with her , studies Lat[place]ian and unemployed Recently moved from [facility]. She has never been to a psychiatrist. Pt was admitted in the ICU because of weakness and to rule out stroke. pt was consulted because of history of depression and conversion disorder. She states that for the past 2 weeks she has trouble sleeping due to persistent thoughts of her daughter. When she is depressed the patient isolates herself and cries. She has had poor sleep for the last 2 weeks and wants to sleep and to stop thinking of her daughter. Patient admits to depressed mod and at times feelings of hopelessness and helplessness. She also feels a lack of support from her who works as as preschool adviser. His busy work schedule has left the patient isolated and preoccupied with thinking of her daughter. She feels that it would be inappropriate for her to discuss this with her because he is sick and receiving treatment.. Patient also states immigrating from [facility] and trying to adapt to the new environment has also contributed to her symptoms. However, she denies any thoughts of killing herself and denies auditory or visual hallucinations or persecutory delusions. She denies any drinking or substance abuse. Current Medications: Active Medications Generic Name Dose Route Start Last Admin Trade Name Freq PRN Reason Stop Dose Admin Pantoprazole Sodium 40 mg 09/11/16 10:00 09/11/16 09:55 Protonix Ec Tab PO 40 mg DAILY FESTUS Administration Past Psychiatric History - Past Psychiatric History Previous Treatment History: None Pertinent Medical Hx (Current Medical&Sleep Prob, Allergies): Allergies Allergy/AdvReac Type Severity Reaction Status Date / Time No Known Allergies Allergy Unverified 09/10/16 16:59 No Known Home Med 09/10/16 Review of Systems - Review of Systems All systems: reviewed and no additional remarkable complaints except - Psychiatric Psychiatric: Anxiety, Depression, Hopelessness, Irritability Mental Status Examination - Personal Presentation Personal Presentation: Looks stated age - Affect Affect: Constricted, Depressed - Motor Activity Motor Activity: Calm - Reliability in Providing Information Reliability in Providing Information: Good - Speech Speech: Organized - Mood Mood: Depressed, Anxious - Obsessions/Compulsions Obsessions: No Compulsions: No - Cognitive Functions Orientation: Person, Place, Situation, Time Sensorium: Alert Attention/Concentration: Attentive Abstract Thinking: [place] Estimate of Intelligence: Below average Judgement: Imparied, as evidence by: Poor judgement, Intact, as evidence by: Insight regarding need for hospitalization - Risk Risk: Diminished functioning - Strength & Assets Inventory Strength & Assets Inventory: Intelligence, Family support DSM 5 DX - DSM 5 DSM 5 Diagnosis: Major depressive disorder recurrent moderate Rule out conversion disorder - Recommended/Plan of Treatment Treatment Recommendations and Plan of Treatment: Major depressive disorder recurrent moderate CBT Psychoeducation Supportive therapy Zoloft 50 mg daily Trazodone 50 mg by mouth daily at bedtime Conversion disorder CBT Psychoeducation - Smoking Cessation Smoking Cessation Initiated: No
--- NOTE | 2016-09-11 11:59 | CARD ---
APPROVED REPORT EKG Measurement Heart [id number] <Conclusion> Normal sinus rhythm Biatrial enlargement Abnormal ECG
--- NOTE | 2016-09-11 12:41 | CT ---
PROCEDURE: CT Angiography of the neck and Brain. HISTORY: Left sided weakness. Left shoulder area pain. COMPARISON: None available. TECHNIQUE: CT angiography of the neck carotid and vertebral arteries and intracranial arteries was performed. Coronal and sagittal maximum intensity projection reformated images were generated. Radiation dose, DLP: 576.[address] exam was performed using one or more of the following dose reduction techniques: Automated exposure control, adjustment of the mA and/or kV according to patient size, and/or use of iterative reconstruction technique. FINDINGS: There is no evidence of focal stenosis or occlusion in the carotid arteries at the neck. The bilateral common carotid arteries are normal in caliber and shape. The internal carotid and proximal external carotid arteries are also normal in caliber and shape. INTERNAL CEREBRAL ARTERIES: Unremarkable. The skull base, petrous, cavernous and supraclinoid segments are bilaterally widely patient. ANTERIOR CEREBRAL ARTERIES: Unremarkable. A1 and A2 segments are widely patent. Smaller distal branches unremarkable, as visualized. MIDDLE CEREBRAL ARTERIES: Unremarkable. M1 and M2 segments are widely patent. Perisylvian branches grossly symmetric. POSTERIOR CIRCULATION: Basilar Artery: Unremarkable. Distal Vertebral Arteries: Unremarkable. Posterior Cerebral Arteries: Unremarkable. Posterior Inferior Cerebellar Arteries: Unremarkable. ANEURYSM/ VASCULAR MALFORMATIONS: None. OTHER FINDINGS: None. IMPRESSION: No evidence of stenosis or occlusion in the carotid arteries and vertebral arteries at the neck or in the intracranial arteries noted in this exam. Preliminary report was submitted by virtual Rad[facility].
--- NOTE | 2016-09-11 12:43 | CP.PCM.CON ---
History of Present Illness - History of Present Illness History of Present Illness: Mrs. Howard is a 45-year-old woman with no significant past medical history, but has a recent history of increased stress and familial tension. She states that yesterday, she started to experience neck and back pain on the left side with subsequent feeling of heaviness and weakness of the left upper and lower extremities. She presented within the 4.5 hour time window of IV thrombolysis with an initial NIHSS of 8. She received IV tPA and was transferred to the ICU for further management. A repeat CT of the head this morning was stable without any concern for hemorrhagic conversion. Today, the patient continues to have left upper and lower weakness, mostly in the proximal regions since she can move her fingers and toes. She continues to complain of the back and neck pain on the left. She does not have any nausea, vomiting, visual changes, chest pain, shortness of breath, abdominal pain or any associated symptoms. Review of Systems - Review of Systems All systems: reviewed and no additional remarkable complaints except Past Patient History - Past Medical History & Family History Past Medical History?: No - Past Social History Smoking Status: Never Smoked - MUSCULOSKELETAL/RHEUMATOLOGICAL Hx Falls: Yes - PSYCHIATRIC Hx Substance Use: No - SURGICAL HISTORY Hx Surgeries: No Meds Allergies/Adverse Reactions: Allergies Allergy/AdvReac Type Severity Reaction Status Date / Time No Known Allergies Allergy Unverified 09/10/16 16:59 - Medications Medications: Current Medications Acetaminophen (Tylenol 325mg Tab) 650 mg PO STAT STA Stop: 09/11/16 12:22 Pantoprazole Sodium (Protonix Ec Tab) 40 mg PO DAILY [facility] Last Admin: 09/11/16 09:55 Dose: 40 mg Sertraline HCl (Zoloft) 50 mg PO DAILY [facility] Trazodone HCl (Desyrel) 50 mg PO [facility] Physical Exam - Constitutional Appears: Well - Head Exam Head Exam: ATRAUMATIC, NORMAL INSPECTION, NORMOCEPHALIC - Eye Exam Eye Exam: EOMI, Normal appearance, PERRL - ENT Exam ENT Exam: Mucous Membranes Moist, Normal Exam - Neck Exam Neck exam: Positive for: Normal Inspection - Respiratory Exam Respiratory Exam: Clear to Auscultation Bilateral, NORMAL BREATHING PATTERN - Cardiovascular Exam Cardiovascular Exam: REGULAR RHYTHM - GI/Abdominal Exam GI & Abdominal Exam: Normal Bowel Sounds, Soft. absent: Tenderness - Extremities Exam Extremities exam: Positive for: normal inspection - Back Exam Back exam: NORMAL INSPECTION - Neurological Exam Neurological exam: Alert, CN II-XII Intact, Oriented x3, Reflexes Normal Additional comments: NIHSS= 7 - Expanded Neurological Exam Expanded Patient oriented to: person, place, time Cranial nerves: EOM's Intact: Normal, Gag Reflex: Normal, Nystagmus: Normal Cerebellar Function: Finger to Nose: Abnormal Left, Heel to Andrea: Abnormal Left Upper motor neuron: Babinski Sign: Normal Sensory exam: Lower Extremity 2 Point Discrimination: Abnormal Left, Lower Extremity Light Touch: Abnormal Left, Lower Extremity Pin Prick: Abnormal Left, Lower Extremity Temperature: Abnormal Left, Upper Extremity 2 Point Discrimination: Abnormal Left, Upper Extremity Light Touch: Abnormal Left, Upper Extremity Pin Prick: Abnormal Left, Upper Extremity Temperature: Abnormal Left Neuro motor strength exam: Left Upper Extremity: 2/1, Right Upper Extremity: 5, Left Lower Extremity: 2/1, Right Lower Extremity: 5 DTR: Achilles Tendon Left: 2+, Achilles Tendon Right: 2+, Bicep Left: 2+, Bicep Right: 2+, Brachioradialis Left: 2+, Brachioradialis Right: 2+, Patellar Left: 2 +, Patellar Right: 2+, Tricep Left: 2+, Tricep Right: 2+ - Psychiatric Exam Psychiatric exam: Anxious - Skin Skin Exam: Dry, Intact, Normal Color, Warm Additional comments: right facial region below the eyes is slightly swollen and errythematous. Results - Vital Signs Recent Vital Signs: Last Vital Signs Temp 98.2 F 09/11/16 08:00 Pulse 84 09/11/16 12:25 Resp 16 09/11/16 12:25 BP 97/61 L 09/11/16 12:25 Pulse Ox 100 09/11/16 12:25 - Labs Result Diagrams: 09/11/16 06:44 09/11/16 06:44 Labs: Laboratory Results - last 24 hr 09/10/16 09/10/16 09/10/16 20:29 20:29 23:57 WBC RBC Hgb Hct MCV MCH MCHC RDW Plt Count MPV Neut % (Auto) Lymph % (Auto) [place] % (Auto) Eos % (Auto) Baso % (Auto) Neut # Lymph # [place] # Eos # Baso # Sodium Potassium Chloride Carbon Dioxide Anion Gap BUN Creatinine Est GFR ( Amer) Est GFR (Non-Af Amer) POC Glucose (mg/dL) 88 Random Glucose Calcium Phosphorus Magnesium Total Bilirubin AST ALT Alkaline Phosphatase Total Protein Albumin Globulin Albumin/Globulin Ratio Urine Color Yellow Urine Clarity Hazy Urine pH 5.0 Ur Specific Huntly 1.014 Urine Protein Negative Urine Glucose (UA) Normal Urine Ketones Trace Urine Blood 2+ H Urine Nitrate Negative Urine Bilirubin Negative Urine Urobilinogen Normal Ur Leukocyte Esterase 2+ H Urine WBC (Auto) 21 H Urine RBC (Auto) 7 H Ur Squamous Epith Cells 8 H Ur Transition Epith Cell < 1 Urine Bacteria Occ H Urine HCG, Qual Negative Stool Occult Blood Negative 09/11/16 09/11/16 06:44 06:44 WBC 5.7 RBC 4.49 Hgb 13.9 Hct 41.7 MCV 92.8 MCH 30.9 MCHC 33.3 RDW 12.9 Plt Count 249 MPV 7.4 Neut % (Auto) 41.6 L Lymph % (Auto) 43.9 H [place] % (Auto) 8.7 Eos % (Auto) 4.9 H Baso % (Auto) 0.9 Neut # 2.4 Lymph # 2.5 [place] # 0.5 Eos # 0.3 Baso # 0.1 Sodium 140 Potassium 3.5 L Chloride 107 Carbon Dioxide 19 L Anion Gap 18 BUN 10 Creatinine 0.5 L Est GFR ( Amer) > 60 Est GFR (Non-Af Amer) > 60 POC Glucose (mg/dL) Random Glucose 85 Calcium 8.6 Phosphorus 3.8 Magnesium 2.1 Total Bilirubin 0.8 AST 24 ALT 13 Alkaline Phosphatase 38 Total Protein 6.4 Albumin 3.5 Globulin 2.8 Albumin/Globulin Ratio 1.3 Urine Color Urine Clarity Urine pH Ur Specific Huntly Urine Protein Urine Glucose (UA) Urine Ketones Urine Blood Urine Nitrate Urine Bilirubin Urine Urobilinogen Ur Leukocyte Esterase Urine WBC (Auto) Urine RBC (Auto) Ur Squamous Epith Cells Ur Transition Epith Cell Urine Bacteria Urine HCG, Qual Stool Occult Blood - Imaging and Cardiology CT scan - head Status: Image reviewed by me, Report reviewed by me Additional comment: No large vessel occlusion, no acute findings. Assessment & Plan (1) Weakness of left side of body Assessment and Plan: The patient received IV tPA since she had acute neurologic deficits, with an NIHSS of 8 and was within the 4.5 hour IV tPA time window. However, imaging has not been consistent with ischemic stroke and she does not have any significant risk factors. Conversion disorder is a strong possibility especially when there is a well established stressful event in the history. I recommend continuing the stroke work-up with echocardiogram, treating hyperlipidemia or any metabolic abnormalities, adequate hydration with NS at 100 mL/hr, psychiatry consultation, PT/OT and case management. May start aspirin 81 mg 24 hours after IV tPA was given. Thank you very much for this consultation. Status: Acute Priority: High
--- NOTE | 2016-09-11 13:03 | MRI ---
PROCEDURE: MRI BRAIN WITHOUT CONTRAST HISTORY: hemiplegia COMPARISON: None. TECHNIQUE: Multiplanar, multisequence MR images of the brain were obtained without intravenous contrast enhancement. FINDINGS: HEMORRHAGE: None DWI: No evidence of an acute or early subacute infarction. BRAIN PARENCHYMA: No mass effect or edema. No atrophy or chronic microvascular ischemic changes. VENTRICLES: Unremarkable. No hydrocephalus. CRANIUM: Unremarkable. ORBITS: Grossly unremarkable. PARANASAL SINUSES/MASTOIDS: Clear VASCULAR SYSTEM: Skull base flow voids intact. OTHER FINDINGS: None. IMPRESSION: No evidence of acute or subacute infarct. No evidence of acute pathology or mass lesion in the brain.
[2016-09-11 19:12] LABS: RBC URINE 11 /hpf (0-3); URINE BILIRUBIN NEGATIVE (NEGATIVE); URINE BLOOD 2+ (NEGATIVE); URINE COLOR Yellow (YELLOW); URINE GLUCOSE (UA) NORMAL (Normal); URINE KETONE NEGATIVE (NEGATIVE); URINE LEUKOCYTE ESTERASE 3+ Leu/uL (Negative); URINE PROTEIN NEGATIVE (NEGATIVE); URINE UROBILINOGEN NORMAL mg/dL (0.2-1.0); WBC URINE 25 /hpf (0-5)
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
[2016-09-12 06:18] LABS: RBC URINE 1 /hpf (0-3); URINE BILIRUBIN NEGATIVE (NEGATIVE); URINE BLOOD NEGATIVE (NEGATIVE); URINE COLOR Yellow (YELLOW); URINE GLUCOSE (UA) NORMAL (Normal); URINE KETONE NEGATIVE (NEGATIVE); URINE LEUKOCYTE ESTERASE NEG Leu/uL (Negative); URINE PROTEIN NEGATIVE (NEGATIVE); URINE UROBILINOGEN NORMAL mg/dL (0.2-1.0); WBC URINE 1 /hpf (0-5)
[2016-09-12] MEDS: Pantoprazole 40 mg EC Tab PO SCH (09:55)
[2016-09-12] MEDS ORDERED: Pneumococcal 23-Valent Vaccine SC ONE (10:00)
[2016-09-12 12:39] LABS: BASO # 0.1 K/uL (0.0-0.2); BASO % 1.1 % (0.0-2.0); EOS # 0.2 K/uL (0.0-0.7); EOS % 4.8 % (0.0-4.0); HEMATOCRIT 39.8 % (34.0-47.0); LYMPH # 1.9 K/uL (1.0-4.3); LYMPH % 36.1 % (20.0-40.0); MEAN CELL VOLUME 92.5 fL (81.0-99.0); MEAN CORPUSCULAR HEMOGLOBIN 30.6 pg (27.0-31.0); MEAN CORPUSCULAR HGB CONC 33.1 g/dL (33.0-37.0); MEAN PLATELET VOLUME 7.4 fL (7.2-11.7); MONO # 0.5 K/uL (0.0-0.8); MONO % 10.4 % (0.0-10.0); WHITE BLOOD COUNT 5.2 K/uL (4.8-10.8)
[2016-09-12 12:50] LABS: CHLORIDE 106 mmol/L (98-107); SODIUM 139 mmol/L (132-148)
[2016-09-12 12:52] LABS: GFR AFRICAN-AMERICAN > 60
[2016-09-12 12:53] LABS: ALB/GLOB RATIO 1.3 (1.0-2.1); ALKALINE PHOSPHATASE 38 U/L (38-126); ALT/SGPT 23 U/L (9-52); AST/SGOT 18 U/L (14-36); BILIRUBIN,TOTAL 0.6 mg/dL (0.2-1.3); BLOOD UREA NITROGEN 13 mg/dL (7-17); CALCIUM 8.6 mg/dl (8.6-10.4); CARBON DIOXIDE 23 mmol/L (22-30); GLUCOSE,RANDOM 89 mg/dL (65-105); MAGNESIUM 2.1 mg/dL (1.6-2.3); TOTAL PROTEIN 6.6 g/dL (6.3-8.3)
--- NOTE | 2016-09-12 13:46 | CP.PCM.PN ---
<Loretta Agudelo - Last Filed: 09/12/16 18:51> Subjective - Date & Time of Evaluation Date of Evaluation: 09/12/16 Time of Evaluation: 09:00 - Subjective Subjective: Medicine Progress Note- Dr. Munoz's Service: Patient seen and examined at bedside this AM. Patient is complaining of wanting to go home this AM. I explained to patient that PT evaluation showed patient was not safe for walking as of yesterday. Patient states she is stronger today. PT to re-evaluate patient. She denies chest pain, SOB, fevers, chills. Admits to LUE weakness has improved. LLE is still weak, but patient thinks it is better. Objective - Vital Signs/Intake and Output Vital Signs (last 24 hours): Temp Pulse Resp BP Pulse Ox 98 F 68 20 100/66 98 09/12/16 07:43 09/12/16 07:43 09/12/16 07:43 09/12/16 07:43 09/12/16 07:43 Intake and Output: 09/12/16 09/12/16 06:59 18:59 Intake Total 0 Output Total 0 Balance 0 - Medications Medications: Current Medications Pantoprazole Sodium (Protonix Ec Tab) 40 mg PO DAILY [facility] Last Admin: 09/12/16 09:55 Dose: 40 mg Sertraline HCl (Zoloft) 50 mg PO DAILY [facility] Last Admin: 09/12/16 09:55 Dose: 50 mg Trazodone HCl (Desyrel) 50 mg PO [facility] Last Admin: 09/11/16 21:45 Dose: 50 mg - Labs Labs: 09/12/16 12:33 09/12/16 12:33 PT 12.3 SECONDS (9.7-12.2) H 09/10/16 17:56 INR 1.1 09/10/16 17:56 APTT 27 SECONDS (21-34) 09/10/16 17:56 - Constitutional Appears: No Acute Distress - Head Exam Head Exam: NORMAL INSPECTION, NORMOCEPHALIC - Eye Exam Eye Exam: EOMI, Normal appearance - ENT Exam ENT Exam: Mucous Membranes Moist - Neck Exam Neck Exam: Full ROM, Normal Inspection - Respiratory Exam Respiratory Exam: Clear to Ausculation Bilateral, NORMAL BREATHING PATTERN - Cardiovascular Exam Cardiovascular Exam: REGULAR RHYTHM, +S1, +S2 - GI/Abdominal Exam GI & Abdominal Exam: Soft. absent: Distended, Tenderness - Extremities Exam Extremities Exam: Full ROM, Normal Inspection - Back Exam Back Exam: NORMAL INSPECTION - Neurological Exam Neurological Exam: Alert, Awake, CN II-XII Intact, Oriented x3 Neuro motor strength exam: Left Upper Extremity: 4, Right Upper Extremity: 5, Left Lower Extremity: 4, Right Lower Extremity: 5 Assessment and Plan - Assessment and Plan (Free Text) Assessment: (1) Weakness of left side of body Assessment & Plan: Patient recieved Tpa per stroke protocol on admission and was placed in ICU. Stroke ruled out and patient was moved to medical floor. Neurology (Dr. Hutchinson) on board As per neurology: imaging did not show ischemic stroke and she does not have any significant risk factors. Neuro recommended psych consult and aspirin started 24 hours after TPA. Psych (Dr. Horne) on board help appreciated CT Head (09/10/16): no acute intracranial abnormalities. no significant findings to account for clinical presentation CT Head (09/11/16): no intracranial hemorrhage. No mass effect or edema. NO atrophy or chronic microvascular ischemic changes, No hydrocephalus. unremarkable Brain MRI (09/11/16): no evidence of acute or subacute infarct. No evidence of acute pathology or mass lesion in the brain. CT Angio Head (09/11/16): no evidence of stenosis, or occlusion in the cartoid artereis and vertebral arteries at the neck or intracranial arteries Hgba1c: 5.4 WNL Cholesterol: 215, [id number], HDL: 55, T f/u ELY f/u [place] Status: Acute (2) Syncope Status: Acute f/u ECHO (3) Anxiety Assessment & Plan: Psych (Dr. Horne) on board help appreciated started on Zoloft 50mg PO qdaily Trazodone 50mg POqHS Orthostatics ordered-->patient is not orthostatic Status: Acute (4) Abnormal urinalysis Assessment & Plan: Repeat UA was normal Patient is not symptomatic of UTI Status: Acute (5) Prophylactic measure Assessment & Plan: Protonix 40mg PO daily Received TPA on admission SCDs Status: Acute <Lionel Munoz - Last Filed: 09/14/16 07:26> Objective - Vital Signs/Intake and Output Vital Signs (last 24 hours): Temp Pulse Resp BP Pulse Ox 97.9 F 69 18 102/68 95 09/14/16 00:00 09/14/16 00:00 09/14/16 00:00 09/14/16 00:00 09/14/16 00:00 - Medications Medications: Current Medications Aspirin (Aspirin Chewable) 81 mg PO DAILY [facility] Last Admin: 09/13/16 10:36 Dose: 81 mg Pantoprazole Sodium (Protonix Ec Tab) 40 mg PO DAILY [facility] Last Admin: 09/13/16 10:36 Dose: 40 mg Sertraline HCl (Zoloft) 50 mg PO DAILY [facility] Last Admin: 09/13/16 10:36 Dose: 50 mg Trazodone HCl (Desyrel) 50 mg PO HS [facility] Last Admin: 09/13/16 21:18 Dose: 50 mg - Labs Labs: 09/13/16 07:58 09/13/16 07:58 PT 12.3 SECONDS (9.7-12.2) H 09/10/16 17:56 INR 1.1 09/10/16 17:56 APTT 27 SECONDS (21-34) 09/10/16 17:56 Attending/Attestation - Attestation I have personally seen and examined this patient.: Yes I have fully participated in the care of the patient.: Yes I have reviewed all pertinent clinical information, including history, physical exam and plan: Yes Notes (Text): Medical Attending: Patient was seen and examined by me. Agree with the above note by the resident. The patient was better able to move her extremities today. As documented before she underwent TPA however it seems that more likley this is due to a lot of stress that the patient is undergoing right now. She is very worried about her family situation at the moment. In the mean time, PT/OT, she needs an echo and carotid study as well.
[2016-09-13 08:08] LABS: BASO # 0.1 K/uL (0.0-0.2); EOS # 0.4 K/uL (0.0-0.7); EOS % 6.3 % (0.0-4.0); HEMATOCRIT 39.3 % (34.0-47.0); LYMPH # 2.2 K/uL (1.0-4.3); LYMPH % 39.9 % (20.0-40.0); MEAN CELL VOLUME 92.7 fL (81.0-99.0); MEAN CORPUSCULAR HEMOGLOBIN 30.9 pg (27.0-31.0); MEAN CORPUSCULAR HGB CONC 33.4 g/dL (33.0-37.0); MEAN PLATELET VOLUME 7.7 fL (7.2-11.7); MONO # 0.5 K/uL (0.0-0.8); MONO % 9.2 % (0.0-10.0); WHITE BLOOD COUNT 5.6 K/uL (4.8-10.8)
[2016-09-13 08:21] LABS: CHLORIDE 106 mmol/L (98-107)
[2016-09-13 08:22] LABS: POTASSIUM 3.7 mmol/L (3.6-5.2); SODIUM 141 mmol/L (132-148)
[2016-09-13 08:24] LABS: BILIRUBIN,TOTAL 0.5 mg/dL (0.2-1.3); CARBON DIOXIDE 24 mmol/L (22-30); GFR AFRICAN-AMERICAN > 60
[2016-09-13 08:25] LABS: ALB/GLOB RATIO 1.2 (1.0-2.1); ALKALINE PHOSPHATASE 38 U/L (38-126); ALT/SGPT 11 U/L (9-52); AST/SGOT 17 U/L (14-36); BLOOD UREA NITROGEN 14 mg/dL (7-17); CALCIUM 8.6 mg/dl (8.6-10.4); GLUCOSE,RANDOM 86 mg/dL (65-105); TOTAL PROTEIN 6.3 g/dL (6.3-8.3)
[2016-09-13 08:26] LABS: MAGNESIUM 2.1 mg/dL (1.6-2.3)
--- NOTE | 2016-09-13 10:01 | CP.PCM.PN ---
<Loretta Agudelo - Last Filed: 09/13/16 15:59> Subjective - Date & Time of Evaluation Date of Evaluation: 09/13/16 Time of Evaluation: 08:00 - Subjective Subjective: Medicine Progress Note- Dr. Mcgill's Service: Patient seen and examined at bedside this AM. Patient has no complaints today and states she is feeling stronger. Patient reports she was able to walk earlier today. However, patient has not been seen by PT since 09/11/16. Patient was not strong enough to walk at that time. She denies dizziness, chest pain, SOB, fevers, chills, nausea, vomiting this AM. No other complaints a this time. Objective - Vital Signs/Intake and Output Vital Signs (last 24 hours): Temp Pulse Resp BP Pulse Ox 98.4 F 65 20 97/62 L 96 09/13/16 08:07 09/13/16 08:07 09/13/16 08:07 09/13/16 08:07 09/13/16 08:07 Intake and Output: 09/13/16 09/13/16 06:59 18:59 Intake Total 100 Balance 100 - Medications Medications: Current Medications Aspirin (Aspirin Chewable) 81 mg PO DAILY [facility] Pantoprazole Sodium (Protonix Ec Tab) 40 mg PO DAILY [facility] Last Admin: 09/12/16 09:55 Dose: 40 mg Sertraline HCl (Zoloft) 50 mg PO DAILY [facility] Last Admin: 09/12/16 09:55 Dose: 50 mg Trazodone HCl (Desyrel) 50 mg PO HS [facility] Last Admin: 09/12/16 21:55 Dose: 50 mg - Labs Labs: 09/13/16 07:58 09/13/16 07:58 PT 12.3 SECONDS (9.7-12.2) H 09/10/16 17:56 INR 1.1 09/10/16 17:56 APTT 27 SECONDS (21-34) 09/10/16 17:56 - Constitutional Appears: No Acute Distress - Head Exam Head Exam: NORMAL INSPECTION, NORMOCEPHALIC - Eye Exam Eye Exam: EOMI, Normal appearance - ENT Exam ENT Exam: Mucous Membranes Moist - Neck Exam Neck Exam: Full ROM - Respiratory Exam Respiratory Exam: Clear to Ausculation Bilateral, NORMAL BREATHING PATTERN - Cardiovascular Exam Cardiovascular Exam: REGULAR RHYTHM, +S1, +S2 - GI/Abdominal Exam GI & Abdominal Exam: Soft. absent: Distended, Tenderness - Extremities Exam Extremities Exam: Full ROM, Normal Inspection - Neurological Exam Neurological Exam: Alert, Awake, Oriented x3 Neuro motor strength exam: Left Upper Extremity: 4, Right Upper Extremity: 5, Left Lower Extremity: 4, Right Lower Extremity: 5 - Psychiatric Exam Psychiatric exam: Normal Affect, Normal Mood - Skin Skin Exam: Normal Color, Warm Assessment and Plan - Assessment and Plan (Free Text) Assessment: (1) Weakness of left side of body Assessment & Plan: Patient recieved Tpa per stroke protocol on admission and was placed in ICU. Stroke ruled out and patient was moved to medical floor. Neurology (Dr. Hutchinson) on board As per neurology: imaging did not show ischemic stroke and she does not have any significant risk factors. Neuro recommended psych consult and aspirin started 24 hours after TPA. ASA started last night. Psych (Dr. Horne) on board help appreciated Brain MRI (09/11/16): no evidence of acute or subacute infarct. No evidence of acute pathology or mass lesion in the brain. CT Angio Head (09/11/16): no evidence of stenosis, or occlusion in the cartoid artereis and vertebral arteries at the neck or intracranial arteries CT Head (09/10/16): no acute intracranial abnormalities. no significant findings to account for clinical presentation CT Head (09/11/16): no intracranial hemorrhage. No mass effect or edema. NO atrophy or chronic microvascular ischemic changes, No hydrocephalus. unremarkable PT/OT HgbA1c: 5.4 WNL TSH: 1.13 WNL Cholesterol: 215, [id number], HDL: 55, T f/u ELY f/u [place] Status: Acute (2) Syncope Status: Acute f/u ECHO (3) Anxiety Assessment & Plan: Psych (Dr. Horne) on board help appreciated Started on Zoloft 50mg PO qdaily Trazodone 50mg POqHS Orthostatics ordered: negative Status: Acute (4) Abnormal urinalysis Assessment & Plan: Repeat UA was normal Patient is not symptomatic of UTI Status: Acute (5) Prophylactic measure Assessment & Plan: Protonix 40mg PO daily Received TPA on admission SCDs Status: Acute <Shauna Mcgill V - Last Filed: 09/13/16 22:59> Objective - Vital Signs/Intake and Output Vital Signs (last 24 hours): Temp Pulse Resp BP Pulse Ox 98.1 F 63 20 96/64 L 97 09/13/16 15:54 09/13/16 15:54 09/13/16 15:54 09/13/16 15:54 09/13/16 15:54 Intake and Output: 09/13/16 09/14/16 18:59 06:59 Intake Total 510 Balance 510 - Medications Medications: Current Medications Aspirin (Aspirin Chewable) 81 mg PO DAILY [facility] Last Admin: 09/13/16 10:36 Dose: 81 mg Pantoprazole Sodium (Protonix Ec Tab) 40 mg PO DAILY [facility] Last Admin: 09/13/16 10:36 Dose: 40 mg Sertraline HCl (Zoloft) 50 mg PO DAILY [facility] Last Admin: 09/13/16 10:36 Dose: 50 mg Trazodone HCl (Desyrel) 50 mg PO HS [facility] Last Admin: 09/13/16 21:18 Dose: 50 mg - Labs Labs: 09/13/16 07:58 09/13/16 07:58 PT 12.3 SECONDS (9.7-12.2) H 09/10/16 17:56 INR 1.1 09/10/16 17:56 APTT 27 SECONDS (21-34) 09/10/16 17:56 Assessment and Plan (1) Weakness of left side of body Status: Acute (2) Syncope Status: Acute (3) Anxiety Status: Acute (4) Abnormal urinalysis Status: Acute (5) Prophylactic measure Status: Acute Attending/Attestation - Attestation I have personally seen and examined this patient.: Yes I have fully participated in the care of the patient.: Yes I have reviewed all pertinent clinical information, including history, physical exam and plan: Yes Notes (Text): Patient seen, examined, and case discussed with day-time resident. Patient is clinically improving able to move left upper extremity with ease. Mood improved. Patient appears cheery and happy. Patient noted to eating [employer] at bedside-->advised to stop given her mildly elevated cholestrol. Patient is anxious to go home-->should be evaluated by PT/OT given improvement in strength of the left upper and lower extremity and seen by psych for clearance prior to discharge to home. Patient is pending echocardiogram at this time. TSH s normal. (1) Weakness of left side of body Assessment & Plan: Admit to ICU Patient recieved Tpa per stroke protocol on admission Stroke ruled out Neurology (Dr. Hutchinson) on board CT Head (09/10/16): no acute intracranial abnormalities. no significant findings to account for clinical presentation CT Head (09/11/16): no intracranial hemorrhage. No mass effect or edema. NO atrophy or chronic microvascular ischemic changes, No hydrocephalus. unremarkable Brain MRI (09/11/16): no evidence of acute or subacute infarct. No evidence of acute pathology or mass lesion in the brain. 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 Horne) on board help appreciated started on Zoloft 50mg PO qdaily Trazodone 50mg POqHS Orthostatics ordered-->patient is not orthostatic Status: Acute (4) Abnormal urinalysis Assessment & Plan: improved UA Patient is not symptomatic of UTI Status: Acute (5) Prophylactic measure Assessment & Plan: Protonix 40mg PO daily Received TPA on admission Aspirin 81mg PO daily will need re-eval by PT/OT given improvement in strength of LUE and LLE extremities Possible discharge planning in 24 hours pending assessments by psych and PT/OT. Status: Acute 09/13/16 22:58
[2016-09-13] MEDS: Pantoprazole 40 mg EC Tab PO SCH (10:36)
[2016-09-14 00:11] VITALS: RESP 18
[2016-09-14 08:27] LABS: BASO # 0.1 K/uL (0.0-0.2); EOS # 0.4 K/uL (0.0-0.7); MEAN PLATELET VOLUME 7.7 fL (7.2-11.7); MONO # 0.4 K/uL (0.0-0.8)
[2016-09-14 08:32] LABS: BASO % 1.1 % (0.0-2.0); EOS % 6.7 % (0.0-4.0); HEMATOCRIT 39.8 % (34.0-47.0); LYMPH # 1.9 K/uL (1.0-4.3); LYMPH % 35.8 % (20.0-40.0); MEAN CELL VOLUME 92.7 fL (81.0-99.0); MEAN CORPUSCULAR HEMOGLOBIN 31.2 pg (27.0-31.0); MEAN CORPUSCULAR HGB CONC 33.7 g/dL (33.0-37.0); MONO % 8.2 % (0.0-10.0); NRBC % 0.5 % (0.0-2.0); WHITE BLOOD COUNT 5.2 K/uL (4.8-10.8)
[2016-09-14 08:58] LABS: CHLORIDE 108 mmol/L (98-107)
[2016-09-14 08:59] LABS: SODIUM 139 mmol/L (132-148)
[2016-09-14 09:00] LABS: GFR AFRICAN-AMERICAN > 60
[2016-09-14 09:01] LABS: ALB/GLOB RATIO 1.1 (1.0-2.1); ALKALINE PHOSPHATASE 38 U/L (38-126); ALT/SGPT 18 U/L (9-52); AST/SGOT 23 U/L (14-36); BILIRUBIN,TOTAL 0.8 mg/dL (0.2-1.3); BLOOD UREA NITROGEN 13 mg/dL (7-17); CARBON DIOXIDE 19 mmol/L (22-30); GLUCOSE,RANDOM 90 mg/dL (65-105); TOTAL PROTEIN 6.5 g/dL (6.3-8.3)
[2016-09-14 09:02] LABS: CALCIUM 8.5 mg/dl (8.6-10.4); MAGNESIUM 2.2 mg/dL (1.6-2.3)
[2016-09-14] MEDS: Pantoprazole 40 mg EC Tab PO SCH (10:37)
[2016-09-14 15:54] VITALS: BP 101/66; PULSE 65; TEMP 99.1; O2SAT 97
[2016-09-14] MEDS ORDERED: Pneumococcal 23-Valent Vaccine IM ONE (16:36)
--- NOTE | 2016-09-14 19:10 | CP.PCM.DIS ---
<Sergio Terry - Last Filed: 09/14/16 19:11> Provider - Provider Date of Admission: 09/10/16 20:02 Attending physician: Eduard Torres MD Time Spent in preparation of Discharge (in minutes): 35 Hospital Course - Lab Results Lab Results: Most Recent Lab Values WBC 5.2 K/uL (4.8-10.8) 09/14/16 08:22 RBC 4.30 Mil/uL (3.80-5.20) 09/14/16 08:22 Hgb 13.4 g/dL (11.0-16.0) 09/14/16 08:22 Hct 39.8 % (34.0-47.0) 09/14/16 08:22 MCV 92.7 fL (81.0-99.0) 09/14/16 08:22 MCH 31.2 pg (27.0-31.0) H 09/14/16 08:22 MCHC 33.7 g/dL (33.0-37.0) 09/14/16 08:22 RDW 13.0 % (11.5-14.5) 09/14/16 08:22 Plt Count 208 K/uL (130-400) 09/14/16 08:22 MPV 7.7 fL (7.2-11.7) 09/14/16 08:22 Neut % (Auto) 48.2 % (50.0-75.0) L 09/14/16 08:22 Lymph % (Auto) 35.8 % (20.0-40.0) 09/14/16 08:22 Traill % (Auto) 8.2 % (0.0-10.0) 09/14/16 08:22 Eos % (Auto) 6.7 % (0.0-4.0) H 09/14/16 08:22 Baso % (Auto) 1.1 % (0.0-2.0) 09/14/16 08:22 Neut # 2.5 K/uL (1.8-7.0) 09/14/16 08:22 Lymph # 1.9 K/uL (1.0-4.3) 09/14/16 08:22 Traill # 0.4 K/uL (0.0-0.8) 09/14/16 08:22 Eos # 0.4 K/uL (0.0-0.7) 09/14/16 08:22 Baso # 0.1 K/uL (0.0-0.2) 09/14/16 08:22 PT 12.3 SECONDS (9.7-12.2) H 09/10/16 17:56 INR 1.1 09/10/16 17:56 APTT 27 SECONDS (21-34) 09/10/16 17:56 Sodium 139 mmol/L (132-148) 09/14/16 08:22 Potassium 4.0 mmol/L (3.6-5.2) 09/14/16 08:22 Chloride 108 mmol/L (98-107) H 09/14/16 08:22 Carbon Dioxide 19 mmol/L (22-30) L 09/14/16 08:22 Anion Gap 16 (10-20) 09/14/16 08:22 BUN 13 mg/dL (7-17) 09/14/16 08:22 Creatinine 0.6 MG/DL (0.7-1.2) L 09/14/16 08:22 Est GFR ( Amer) > 60 09/14/16 08:22 Est GFR (Non-Af Amer) > 60 09/14/16 08:22 POC Glucose (mg/dL) 88 mg/dL (65-110) 09/10/16 23:57 Random Glucose 90 mg/dL (65-105) 09/14/16 08:22 Hemoglobin A1c 5.4 % (4.2-6.5) 09/10/16 17:56 Calcium 8.5 mg/dl (8.6-10.4) L 09/14/16 08:22 Phosphorus 4.0 mg/dL (2.5-4.5) 09/14/16 08:22 Magnesium 2.2 mg/dL (1.6-2.3) 09/14/16 08:22 Total Bilirubin 0.8 mg/dL (0.2-1.3) 09/14/16 08:22 AST 23 U/L (14-36) 09/14/16 08:22 ALT 18 U/L (9-52) 09/14/16 08:22 Alkaline Phosphatase 38 U/L (38-126) 09/14/16 08:22 Troponin I < 0.0120 ng/mL (0.00-0.120) 09/10/16 17:56 Total Protein 6.5 g/dL (6.3-8.3) 09/14/16 08:22 Albumin 3.4 g/dL (3.5-5.0) L 09/14/16 08:22 Globulin 3.1 gm/dL (2.2-3.9) 09/14/16 08:22 Albumin/Globulin Ratio 1.1 (1.0-2.1) 09/14/16 08:22 Triglycerides 93 mg/dL (0-149) 09/10/16 17:56 Cholesterol 215 mg/dL (0-199) H 09/10/16 17:56 LDL Cholesterol Direct 130 mg/dL (0-129) H 09/10/16 17:56 HDL Cholesterol 55 mg/dL (30-70) 09/10/16 17:56 TSH 3rd Generation 1.13 mIU/L (0.46-4.68) 09/13/16 13:38 Urine Color Yellow (YELLOW) 09/12/16 06:11 Urine Clarity Hazy (Clear) 09/12/16 06:11 Urine pH 7.0 (5.0-8.0) 09/12/16 06:11 Ur Specific [place] 1.011 (1.003-1.030) 09/12/16 06:11 Urine Protein Negative mg/dL (NEGATIVE) 09/12/16 06:11 Urine Glucose (UA) Normal mg/dL (Normal) 09/12/16 06:11 Urine Ketones Negative mg/dL (NEGATIVE) 09/12/16 06:11 Urine Blood Negative (NEGATIVE) 09/12/16 06:11 Urine Nitrate Positive (NEGATIVE) H 09/12/16 06:11 Urine Bilirubin Negative (NEGATIVE) 09/12/16 06:11 Urine Urobilinogen Normal mg/dL (0.2-1.0) 09/12/16 06:11 Ur Leukocyte Esterase Neg Rebecca/uL (Negative) 09/12/16 06:11 Urine WBC (Auto) 1 /hpf (0-5) 09/12/16 06:11 Urine RBC (Auto) 1 /hpf (0-3) 09/12/16 06:11 Ur Squamous Epith Cells 20 /hpf (0-5) H 09/11/16 18:42 Ur Transition Epith Cell < 1 /hpf (0-3) 09/10/16 20:29 Urine Bacteria Occ (<OCC) H 09/10/16 20:29 Urine HCG, Qual Negative (NEGATIVE) 09/10/16 20:29 Stool Occult Blood Negative (NEGATIVE) 09/10/16 20:29 Urine Opiates Screen Negative (NEGATIVE) 09/11/16 18:42 Urine Methadone Screen Negative (NEGATIVE) 09/11/16 18:42 Ur Barbiturates Screen Negative (NEGATIVE) 09/11/16 18:42 Ur Phencyclidine Scrn Negative (NEGATIVE) 09/11/16 18:42 Ur Amphetamines Screen Negative (NEGATIVE) 09/11/16 18:42 U Benzodiazepines Scrn Negative (NEGATIVE) 09/11/16 18:42 U Oth Cocaine Metabols Negative (NEGATIVE) 09/11/16 18:42 U Cannabinoids Screen Negative (NEGATIVE) 09/11/16 18:42 Rheum Arthritis Panel Negative (NEGATIVE) 09/12/16 13:38 ELY 6 Profile Negative (NEGATIVE) 09/12/16 13:38 Blood Type A NEGATIVE 09/10/16 17:56 Antibody Screen Negative 09/10/16 17:56 - Hospital Course Hospital Course: 45yo female with no significant PMHx - presents c/o Left sided weakness/ paralysis when she woke up on day of admission. Nuerology consulted: She received tPA. CT Head (09/10/16): no acute intracranial abnormalities. no significant findings to account for clinical presentation CT Head (09/11/16): no intracranial hemorrhage. No mass effect or edema. NO atrophy or chronic microvascular ischemic changes, No hydrocephalus. Brain MRI (09/11/16): no evidence of acute or subacute infarct. No evidence of acute pathology or mass lesion in the brain. CT Angio Head (09/11/16): no evidence of stenosis, or occlusion in the cartoid artereis and vertebral arteries at the neck or intracranial arteries There was no evidence of acute finding on any of the imaging modalities and psych was consulted. Per psych, major depressive disorder vs conversion disorder. Start on Zoloft, trazadone. Pt. advised to follow up as outpatient. This is a breif account of her stay, fore more details, please refer her chart. - Date & Time of H&P Date of H&P: 09/14/16 Time of H&P: 07:40 Discharge Exam - Head Exam Head Exam: NORMAL INSPECTION, NORMOCEPHALIC - Eye Exam Eye Exam: EOMI, Normal appearance - ENT Exam ENT Exam: Mucous Membranes Moist - Neck Exam Neck exam: Full Rom - Respiratory Exam Respiratory Exam: Clear to PA & Lateral, NORMAL BREATHING PATTERN, UNREMARKABLE - Cardiovascular Exam Cardiovascular Exam: REGULAR RHYTHM, +S1, +S2. absent: JVD - GI/Abdominal Exam GI & Abdominal Exam: Normal Bowel Sounds, Soft, Unremarkable. absent: Tenderness - Extremities Exam Extremities exam: full ROM - Neurological Exam Neurological exam: Alert, CN II-XII Intact, Normal Gait, Oriented x3, Reflexes Normal - Skin Skin Exam: Dry, Intact, Normal Color, Warm Discharge Plan - Discharge Medications Prescriptions: Aspirin [Aspirin Chewable] 81 mg PO DAILY #30 Sertraline [Zoloft] 50 mg PO DAILY #30 tab traZODone [Desyrel] 50 mg PO HS #30 tab - Follow Up Plan Condition: FAIR Disposition: DISCHARGED TO HOME CARE Instructions: Trazodone (By mouth), Aspirin (By mouth), Sertraline (By mouth), Anxiety (DC) Additional Instructions: Patient is medically stable for discharge. Please follow up with [facility] within one week to sign up for [facility] [phone] and setup psychiatric services [phone]. Please follow up with [facility] within one week to setup primary care services. [phone] Please follow up with [facility] within one week to setup Home Physical Therapy. [phone] Thank you for allowing us to take part in your care. Referrals: Clinic,Med Surg [Non-Staff] - <Shauna Mcgill V - Last Filed: 09/14/16 23:13> Provider - Provider Date of Admission: 09/10/16 20:02 Attending physician: Eduard Torres MD Diagnosis - Discharge Diagnosis (1) Weakness of left side of body Status: Acute Priority: High (2) Syncope Status: Acute (3) Anxiety Status: Acute (4) Abnormal urinalysis Status: Acute (5) Prophylactic measure Status: Acute Hospital Course - Lab Results Lab Results: Most Recent Lab Values WBC 5.2 K/uL (4.8-10.8) 09/14/16 08:22 RBC 4.30 Mil/uL (3.80-5.20) 09/14/16 08:22 Hgb 13.4 g/dL (11.0-16.0) 09/14/16 08:22 Hct 39.8 % (34.0-47.0) 09/14/16 08:22 MCV 92.7 fL (81.0-99.0) 09/14/16 08:22 MCH 31.2 pg (27.0-31.0) H 09/14/16 08:22 MCHC 33.7 g/dL (33.0-37.0) 09/14/16 08:22 RDW 13.0 % (11.5-14.5) 09/14/16 08:22 Plt Count 208 K/uL (130-400) 09/14/16 08:22 MPV 7.7 fL (7.2-11.7) 09/14/16 08:22 Neut % (Auto) 48.2 % (50.0-75.0) L 09/14/16 08:22 Lymph % (Auto) 35.8 % (20.0-40.0) 09/14/16 08:22 [place]ill % (Auto) 8.2 % (0.0-10.0) 09/14/16 08:22 Eos % (Auto) 6.7 % (0.0-4.0) H 09/14/16 08:22 Baso % (Auto) 1.1 % (0.0-2.0) 09/14/16 08:22 Neut # 2.5 K/uL (1.8-7.0) 09/14/16 08:22 Lymph # 1.9 K/uL (1.0-4.3) 09/14/16 08:22 [place] # 0.4 K/uL (0.0-0.8) 09/14/16 08:22 Eos # 0.4 K/uL (0.0-0.7) 09/14/16 08:22 Baso # 0.1 K/uL (0.0-0.2) 09/14/16 08:22 PT 12.3 SECONDS (9.7-12.2) H 04/27/17 17:56 INR 1.1 09/10/16 17:56 APTT 27 SECONDS (21-34) 09/10/16 17:56 Sodium 139 mmol/L (132-148) 09/14/16 08:22 Potassium 4.0 mmol/L (3.6-5.2) 09/14/16 08:22 Chloride 108 mmol/L (98-107) H 09/14/16 08:22 Carbon Dioxide 19 mmol/L (22-30) L 09/14/16 08:22 Anion Gap 16 (10-20) 09/14/16 08:22 BUN 13 mg/dL (7-17) 09/14/16 08:22 Creatinine 0.6 MG/DL (0.7-1.2) L 09/14/16 08:22 Est GFR ( Amer) > 60 09/14/16 08:22 Est GFR (Non-Af Amer) > 60 09/14/16 08:22 POC Glucose (mg/dL) 88 mg/dL (65-110) 09/10/16 23:57 Random Glucose 90 mg/dL (65-105) 09/14/16 08:22 Hemoglobin A1c 5.4 % (4.2-6.5) 09/10/16 17:56 Calcium 8.5 mg/dl (8.6-10.4) L 09/14/16 08:22 Phosphorus 4.0 mg/dL (2.5-4.5) 09/14/16 08:22 Magnesium 2.2 mg/dL (1.6-2.3) 09/14/16 08:22 Total Bilirubin 0.8 mg/dL (0.2-1.3) 09/14/16 08:22 AST 23 U/L (14-36) 09/14/16 08:22 ALT 18 U/L (9-52) 09/14/16 08:22 Alkaline Phosphatase 38 U/L (38-126) 09/14/16 08:22 Troponin I < 0.0120 ng/mL (0.00-0.120) 09/10/16 17:56 Total Protein 6.5 g/dL (6.3-8.3) 09/14/16 08:22 Albumin 3.4 g/dL (3.5-5.0) L 09/14/16 08:22 Globulin 3.1 gm/dL (2.2-3.9) 09/14/16 08:22 Albumin/Globulin Ratio 1.1 (1.0-2.1) 09/14/16 08:22 Triglycerides 93 mg/dL (0-149) 09/10/16 17:56 Cholesterol 215 mg/dL (0-199) H 09/10/16 17:56 LDL Cholesterol Direct 130 mg/dL (0-129) H 09/10/16 17:56 HDL Cholesterol 55 mg/dL (30-70) 09/10/16 17:56 TSH 3rd Generation 1.13 mIU/L (0.46-4.68) 09/13/16 13:38 Urine Color Yellow (YELLOW) 09/12/16 06:11 Urine Clarity Hazy (Clear) 09/12/16 06:11 Urine pH 7.0 (5.0-8.0) 09/12/16 06:11 Ur Specific [place] 1.011 (1.003-1.030) 09/12/16 06:11 Urine Protein Negative mg/dL (NEGATIVE) 09/12/16 06:11 Urine Glucose (UA) Normal mg/dL (Normal) 09/12/16 06:11 Urine Ketones Negative mg/dL (NEGATIVE) 09/12/16 06:11 Urine Blood Negative (NEGATIVE) 09/12/16 06:11 Urine Nitrate Positive (NEGATIVE) H 09/12/16 06:11 Urine Bilirubin Negative (NEGATIVE) 09/12/16 06:11 Urine Urobilinogen Normal mg/dL (0.2-1.0) 09/12/16 06:11 Ur Leukocyte Esterase Neg Rebecca/uL (Negative) 09/12/16 06:11 Urine WBC (Auto) 1 /hpf (0-5) 09/12/16 06:11 Urine RBC (Auto) 1 /hpf (0-3) 09/12/16 06:11 Ur Squamous Epith Cells 20 /hpf (0-5) H 09/11/16 18:42 Ur Transition Epith Cell < 1 /hpf (0-3) 09/10/16 20:29 Urine Bacteria Occ (<OCC) H 09/10/16 20:29 Urine HCG, Qual Negative (NEGATIVE) 09/10/16 20:29 Stool Occult Blood Negative (NEGATIVE) 04/27/17 20:29 Urine Opiates Screen Negative (NEGATIVE) 09/11/16 18:42 Urine Methadone Screen Negative (NEGATIVE) 09/11/16 18:42 Ur Barbiturates Screen Negative (NEGATIVE) 09/11/16 18:42 Ur Phencyclidine Scrn Negative (NEGATIVE) 09/11/16 18:42 Ur Amphetamines Screen Negative (NEGATIVE) 09/11/16 18:42 U Benzodiazepines Scrn Negative (NEGATIVE) 09/11/16 18:42 U Oth Cocaine Metabols Negative (NEGATIVE) 09/11/16 18:42 U Cannabinoids Screen Negative (NEGATIVE) 09/11/16 18:42 Rheum Arthritis Panel Negative (NEGATIVE) 09/12/16 13:38 ELY 6 Profile Negative (NEGATIVE) 09/12/16 13:38 Blood Type A NEGATIVE 09/10/16 17:56 Antibody Screen Negative 09/10/16 17:56 Attending/Attestation - Attestation I have personally seen and examined this patient.: Yes I have fully participated in the care of the patient.: Yes I have reviewed all pertinent clinical information, including history, physical exam and plan: Yes Notes (Text): Patient seen, examined, and case discussed with day-time resident. Patient is clinically improved. Moving left upper and lower extremities with ease; 5/5 strength UE/LE. Patient is very happy, smiling, would like to go home. 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 Patient reporting she is doing well. Explained to the patient is on anti-depressant which need 2 months to work optimally. Patient understands given her level of stress symptoms may recur. Patient advised to follow-up with psychiatrist. Also advised patient to be wary of eating [employer] given she has mildly elevated cholesterol noted on blood work. Patient to follow-up outpatient regarding final report of echocardiogram. Patient evaluated by physical therapy today recommended for home PT per discharge planning. Patient is medically stable for discharge today. Patient advised to follow-up for outpatient PT, setup at [facility]. Patient advised to follow-up at the [facility] in [facility] to establish care and follow-up post hospitalization. Discharge instructions discussed with patient at bedside. Patient verbalized understanding and agrees. Prescriptions upon discharge: 1) Aspirin 81mg PO daily (30/0) 2) Zoloft 50mg PO daily (30/0) 3) Trazodone 50mg POqHS (/0) Discharge instructions include: Please follow up with [facility] within one week to sign up for [facility] [phone] and setup psychiatric services [phone]. Please follow up with [facility] within one week to setup primary care services. [phone] Please follow up with [facility] within one week to setup Home Physical Therapy. [phone] This is a summary of patient's hospitalization. Please see EMR for further details. Assessment/Plan (1) Weakness of left side of body (resolved) Assessment & Plan: Admit to ICU on admission. Patient received Tpa per stroke protocol on admission. Patient ruled out for acute stroke. Patient stabilized to the floor. PT/OT on board and symptoms resolved Neurology (Dr. Hutchinson) on the case and consulted. Patient completed imaging including: CT Head (09/10/16): no acute intracranial abnormalities. no significant findings to account for clinical presentation CT Head (09/11/16): no intracranial hemorrhage. No mass effect or edema. NO atrophy or chronic microvascular ischemic changes, No hydrocephalus. unremarkable Brain MRI (09/11/16): no evidence of acute or subacute infarct. No evidence of acute pathology or mass lesion in the brain. CT Angio Head (09/11/16): no evidence of stenosis, or occlusion in the cartoid artereis and vertebral arteries at the neck or intracranial arteries Hgba1c: 5.4-->patient is not diabetic Cholestrol: 215, [id number], HDL: 55, T-->counsellors diet and exercise Likely secondary due to anxiety and possible conversion disorder Status: Resolved (2) Syncope Status: Acute Patient is not orthostatic Patient to follow-up echocardiogram report which is not available at time of discharge Troponin negative Per PT, patient recommended for home with Home PT. Patient given recommendation for Home PT at [facility]. (3) Anxiety Assessment & Plan: Psych (Dr. Horne) on board help appreciated started on Zoloft 50mg PO qdaily and Trazodone 50mg POqHS during hospitalization. Patient discharge on Zoloft 50mg PO daily and Trazodone 50mg POqHS (1 month supply) and advised to follow-up with psych as outpatient Status: Stabilized (4) Abnormal urinalysis Assessment & Plan: improved UA Patient is not symptomatic of UTI Status: Acute (5) Prophylactic measure Assessment & Plan: Aspirin 81mg PO daily as cardioprotective measure upon discharge Home with home PT per PT
--- NOTE | 2016-09-15 05:02 | CARD ---
APPROVED REPORT EXAM: Two-dimensional and M-mode echocardiogram with Doppler and color Doppler. Other Information Quality : GoodRhythm : NSR M-Mode DIMENSIONS RVDd2.02 (2.1-3.2cm)Left Atrium (MM)3.16 (2.5-4.0cm) IVSd0.75 (0.7-1.1cm)Aortic Root2.31 (2.2-3.7cm) LVDd4.07 (4.0-5.6cm)Aortic Cusp Exc.1.69 (1.5-2.0cm) PWd0.91 (0.7-1.1cm)FS (%) 43 % LVDs2.31 (2.0-3.8cm)LVEF (%)75 (>50%) Aortic Valve AoV Peak Dxeqbdta765.9cm/Edmond Peak GR.9mmHg Mitral Valve MV E Qziklevi66.8cm/sMV A Snlqlhij96.2cm/sE/A ratio1.2 TDI E/Lateral E'0.0E/Medial E'0.0 Tricuspid Valve TR Peak Jvxukptr387zl/sTR Peak Gr.[id number] LEFT VENTRICLE The left ventricle is normal size. There is normal left ventricular wall thickness. Left ventricle systolic function is normal. The Ejection Fraction is >70%. There is normal LV segmental wall motion. The left ventricular diastolic function is normal. RIGHT VENTRICLE The right ventricle is normal size. There is normal right ventricular wall thickness. The right ventricular systolic function is normal. ATRIA The left atrium size is normal. The right atrium size is normal. The interatrial septum is intact with no evidence for an atrial septal defect. AORTIC VALVE The aortic valve is normal in structure. No aortic regurgitation is present. There is no aortic valvular stenosis. There is no aortic valvular vegetation. MITRAL VALVE The mitral valve is normal in structure. There is no evidence of mitral valve prolapse. There is no mitral valve stenosis. There is no mitral valve regurgitation noted. TRICUSPID VALVE The tricuspid valve is normal in structure. There is trace tricuspid regurgitation. Right ventricular systolic pressure is estimated at 30-40 mmHg. There is mild pulmonary hypertension. PULMONIC VALVE The pulmonic valve is not well visualized. There is mild pulmonic valvular regurgitation. GREAT VESSELS The aortic root is normal in size. PERICARDIAL EFFUSION There is no significant pericardial effusion. <Conclusion> Left ventricle systolic function is normal. The Ejection Fraction is >70%. No aortic regurgitation is present. There is no mitral valve regurgitation noted. There is trace tricuspid regurgitation. There is mild pulmonary hypertension. There is mild pulmonic valvular regurgitation.
[2016-09-16 16:40] LABS: LYME IGG NEGATIVE (NEGATIVE)
[2016-09-16 16:54] LABS: LYME IGM POSITIVE (NEGATIVE)
--- NOTE | 2016-10-02 11:55 | CARD ---
APPROVED REPORT EKG Measurement Heart [id number] <Conclusion> Normal sinus rhythm Cannot rule out Anterior infarct, age undetermined Abnormal ECG
== END 2016-09-14 17:50 | disposition home health service (06) | DRG 141 ==
LOC: C.ER 16:51 → C.9I 20:02 → C.5T 09-12 01:34
PROVIDERS: ADMIT Family Medicine; ATTEND Family Medicine
PROC: 3E03317 Introduction of Other Thrombolytic into Peripheral Vein, Percutaneous Approach (ICD-10-PCS; principal; 2016-09-11)
PROC: GZ58ZZZ Individual Psychotherapy, Cognitive-Behavioral (ICD-10-PCS; 2016-09-11)
PROC: GZ56ZZZ Individual Psychotherapy, Supportive (ICD-10-PCS; 2016-09-11)
DX: R55 Syncope and collapse (principal); F33.1 Major depressive disorder, recurrent, moderate; I10 Essential (primary) hypertension; Z83.3 Family history of diabetes mellitus; E78.00 Pure hypercholesterolemia, unspecified; F41.9 Anxiety disorder, unspecified; F44.9 Dissociative and conversion disorder, unspecified; Z79.82 Long term (current) use of aspirin; R53.1 Weakness; R82.99 Other abnormal findings in urine

== ENCOUNTER 2016-10-08 15:32 | Emergency (ER) | payer OTHER ==
[2016-10-08 15:43] VITALS: RESP 20; TEMP 98.6
--- NOTE | 2016-10-08 16:08 | C.PDOC ---
History Of Present Illness 45 y/o female presents to the ED with complains of headache x1 week to the base of skull and top of neck. Pain is intermittent with associated paresthesia to LUE/LLE; patient states has had intermittent pain to LUE/LLE "for a while." Pt denies fever, nausea, vomiting, weakness. Compliant with medications, no pain meds tried. Currently only with headache. Pt also complaining of intermittent sharp chest pain x1 week lasting seconds at a time, currently resolved. No associated SOB, dizziness, nausea, vomiting or other complaints. PENDING CLINIC APPT 10/28 BORJAS X 1 WEEK. BASE OF SKULL, TOP NECK. INTERMIT. NO FEVER, NV. INTERMIT PARESTHESIA LUE/LLE. PS HO INTERMIT PAIN LUE/LLE "FOR A WHILE". NO ASSOC WEAKNESS. COMPLIANT W MEDS. NO PAIN MEDS TRIED. CURRENTLY ONLY W HEADACHE ALSO INTERMIT SHARP CHEST PAIN X 1 WEEK. LASTING SECONDS. CURRENTLY ASYMPT. NO ASSOC SOB, DIZZY, NV. OLD CHART: PT RECEIVED tPA. CT Head (09/10/16): no acute intracranial abnormalities. no significant findings to account for clinical presentation CT Head (09/11/16): no intracranial hemorrhage. No mass effect or edema. NO atrophy or chronic microvascular ischemic changes, No hydrocephalus. Brain MRI (09/11/16): no evidence of acute or subacute infarct. No evidence of acute pathology or mass lesion in the brain. CT Angio Head (09/11/16): no evidence of stenosis, or occlusion in the cartoid artereis and vertebral arteries at the neck or intracranial arteries There was no evidence of acute finding on any of the imaging modalities and psych was consulted. Per psych, major depressive disorder vs conversion disorder. Start on Zoloft, trazadone. EXAM NEURO INTACT GAIT WNL NEG Time Seen by Provider: 10/08/16 15:52 Chief Complaint (Nursing): Headache History Per: Patient History/Exam Limitations: no limitations Onset/Duration Of Symptoms: Days Severity: Moderate Quality: "Pain" Preceeding Symptoms: None Associated Symptoms: denies: Nausea, Vomiting Recent travel outside of the [place]: No Past Medical History Reviewed: Historical Data, Nursing Documentation, Vital Signs Vital Signs: Last Vital Signs Temp 98.6 F 10/08/16 15:41 Pulse 71 10/08/16 15:41 Resp 20 10/08/16 15:41 BP 103/69 10/08/16 15:41 Pulse Ox 98 10/08/16 18:00 - [facility] Procedures INDIVIDUAL PSYCHOTHERAPY, COGNITIVE-BEHAVIORAL (09/10/16) INDIVIDUAL PSYCHOTHERAPY, SUPPORTIVE (09/10/16) INTRODUCE OTH THROMBOLYTIC IN PERIPH VEIN, PERC (09/10/16) Family History: States: Unknown Family Hx - Social History Hx Tobacco Use: No Hx Alcohol Use: No Hx Substance Use: No Review Of Systems Except As Marked, All Systems Reviewed And Found Negative. Constitutional: Negative for: Fever Eyes: Negative for: Vision Change Cardiovascular: Positive for: Chest Pain (intrmittent, currently resolved) Respiratory: Negative for: Shortness of Breath Gastrointestinal: Negative for: Nausea, Vomiting Neurological: Positive for: Numbness (intermittent, LUE/LLE), Headache. Negative for: Weakness, Dizziness Physical Exam - Physical Exam Appears: Non-toxic, No Acute Distress Skin: Warm, Dry, No Rash Head: Atraumatic, Normacephalic Eye(s): bilateral: Normal Inspection, PERRL, EOMI Neck: Normal, Normal ROM, Supple Chest: Symmetrical Cardiovascular: Rhythm Regular, No Murmur Respiratory: Normal Breath Sounds, No Rales, No Rhonchi, No Wheezing Extremity: Normal ROM Extremity: Bilateral: Atraumatic Neurological/Psych: Oriented x3, Normal Speech, Normal Cognition, Normal Cranial Nerves, Normal Motor, Normal Sensation Gait: Steady ED Course And Treatment - Laboratory Results Result Diagrams: 10/08/16 17:19 10/08/16 17:19 O2 Sat by Pulse Oximetry: 98 (room air) Pulse Ox Interpretation: Normal - CT Scan/US CT head Other Rad Studies (CT/US): Read By Radiologist, Radiology Report Reviewed CT/US Interpretation: PROCEDURE: CT HEAD WITHOUT CONTRAST. HISTORY: HEADACHE. COMPARISON: Comparison is made to the previous study dated 2026. TECHNIQUE: Axial computed tomography images were obtained through the head/brain without intravenous contrast. Radiation dose: Total exam DLP = 813.1 mGy-cm. This CT exam was performed using one or more of the following dose reduction techniques: Automated exposure control, adjustment of the mA and/ or kV according to patient size, and/or use of iterative reconstruction technique. FINDINGS: HEMORRHAGE: No intracranial hemorrhage. BRAIN: No mass effect or edema. No atrophy or chronic microvascular ischemic changes. VENTRICLES: Unremarkable. No hydrocephalus. CALVARIUM: Unremarkable. PARANASAL SINUSES: Unremarkable as visualized. No significant inflammatory changes. MASTOID AIR CELLS: Unremarkable as visualized. No inflammatory changes. OTHER FINDINGS: None. IMPRESSION: No evidence of acute intracranial hemorrhage intracranial collection mass effect or midline shift. Progress - Data Reviewed Data Reviewed: Lab, Diagnostic imaging, Old records Medical Decision Making Medical Decision Making: Plan: * CT head * EKG * labs * IV fluids * reglan, tylenol Disposition Counseled Patient/Family Regarding: Studies Performed, Diagnosis, Need For Followup - Disposition Referrals: [facility] [Outside] [facility] [Outside] Disposition: HOME/ ROUTINE Disposition Time: 17:59 Condition: GOOD Additional Instructions: TAKE TYLENOL DIRECTED FOR PAIN NEEDED Instructions: Acute Headache (ED) - Clinical Impression Clinical Impression: Headache - Scribe Statement The provider has reviewed the documentation as recorded by the [facility] Provider Attestation: All medical record entries made by the [facility] were at my direction and personally dictated by me. I have reviewed the chart and agree that the record accurately reflects my personal performance of the history, physical exam, medical decision making, and the department course for this patient. I have also personally directed, reviewed, and agree with the discharge instructions and disposition.
[2016-10-08 17:22] LABS: BASO % 0.5 % (0.0-2.0); EOS # 0.3 K/uL (0.0-0.7); EOS % 4.5 % (0.0-4.0); HEMATOCRIT 40.7 % (34.0-47.0); LYMPH # 2.1 K/uL (1.0-4.3); LYMPH % 38.2 % (20.0-40.0); MEAN CELL VOLUME 92.6 fL (81.0-99.0); MEAN CORPUSCULAR HEMOGLOBIN 31.3 pg (27.0-31.0); MEAN CORPUSCULAR HGB CONC 33.8 g/dL (33.0-37.0); MEAN PLATELET VOLUME 7.2 fL (7.2-11.7); MONO # 0.4 K/uL (0.0-0.8); MONO % 6.8 % (0.0-10.0); RED CELL DISTRIBUTION WIDTH 13.1 % (11.5-14.5); WHITE BLOOD COUNT 5.6 K/uL (4.8-10.8)
[2016-10-08 17:30] LABS: CHLORIDE 103 mmol/L (98-107); POTASSIUM 3.8 mmol/L (3.6-5.2); SODIUM 138 mmol/L (132-148)
[2016-10-08 17:34] LABS: CARBON DIOXIDE 25 mmol/L (22-30); GFR AFRICAN-AMERICAN > 60
[2016-10-08 17:35] LABS: BLOOD UREA NITROGEN 17 mg/dL (7-17); CALCIUM 8.8 mg/dl (8.6-10.4); GLUCOSE,RANDOM 90 mg/dL (65-105)
--- NOTE | 2016-10-08 17:56 | CT ---
PROCEDURE: CT HEAD WITHOUT CONTRAST. HISTORY: HEADACHE COMPARISON: Comparison is made to the previous study dated 09/11/2026 TECHNIQUE: Axial computed tomography images were obtained through the head/brain without intravenous contrast. Radiation dose: Total exam DLP = 813.1 mGy-cm. This CT exam was performed using one or more of the following dose reduction techniques: Automated exposure control, adjustment of the mA and/or kV according to patient size, and/or use of iterative reconstruction technique. FINDINGS: HEMORRHAGE: No intracranial hemorrhage. BRAIN: No mass effect or edema. No atrophy or chronic microvascular ischemic changes. VENTRICLES: Unremarkable. No hydrocephalus. CALVARIUM: Unremarkable. PARANASAL SINUSES: Unremarkable as visualized. No significant inflammatory changes. MASTOID AIR CELLS: Unremarkable as visualized. No inflammatory changes. OTHER FINDINGS: None. IMPRESSION: No evidence of acute intracranial hemorrhage intracranial collection mass effect or midline shift.
[2016-10-08 18:19] VITALS: BP 108/68; PULSE 68; O2SAT 100
== END 2016-10-08 18:19 | disposition home or self-care (01) ==
LOC: C.ER 15:32
DX: R51 Headache (principal)
CPT/HCPCS: 70450; 80048; 84484; 85025; 96374; 99284; J2765